=== PATIENT | male | born 1945 | race Caucasian/White ===

== ENCOUNTER → 2018-08-14 | Outpatient (CLI) | payer MEDICARE ==
[~2018-08-14] MED LIST: ATENOLOL50 MG PO; FISH OIL 1,0001 EAC2 PO; GEMFIBROZIL600 MG PO; HYDROCHLOROTHIA25 MG PO; HYDROCODON-ACE1 EA12 PO; IOPAMIDOL 370 MG/ML 200 ML INFUS..BTL INJ ONE; LISINOPRIL10 MG PO; METFORMIN HCL500 M1 PO; NIFEDIPINE; NOVOLOG100 UNIT/1 SC; OMEPRAZOLE40 MG PO; SIMVASTATIN20 MG PO; SODIUM CHLORIDE 0.9% 100 ML 100 ML ONE; SODIUM CHLORIDE 0.9% 250ML 250 ML ONE; SODIUM CHLORIDE 0.9% 500ML 500 ML ONE; TRESIBA SC; VERAPAMIL ER120 MG PO; [UNRECOGNIZED DRUG - OTHER] PO
[2018-08-14 15:35] LABS: CREATININE, SERUM 1.36 mg/dL (0.72-1.25)
--- NOTE | 2018-08-14 17:28 | Diagnostic Imaging Report ---
ADDENDUM #1 The following addendum is being made to comply with coding criteria, and does not substantially change the findings or recommendations of the original report All CT scans are performed using radiation dose reduction techniques. Technical factors are evaluated and adjusted to ensure appropriate moderation of exposure. Automated dose management technology is applied to adjust the radiation dose to minimize exposure while achieving a diagnostic-quality image. Signed by: Dr. Mariusz Fonseca M.D. on 08/21/2018 1:26 PM ORIGINAL REPORT EXAM: CT Chest WITH contrast 08/14/2018 3:03 PM INDICATION: Shortness of breath. Cough. Prior heart surgery. COMPARISON: None TECHNIQUE: Chest was scanned utilizing a multidetector helical scanner from the lung apex through the level of the adrenal glands without administration of IV contrast. Coronal and sagittal reformations were obtained. Pulmonary embolism protocol was performed. IV CONTRAST: 100 mL of Isovue-370 RADIATION DOSE: Total DLP: 726.66 mGy*cm Estimated effective dose: (DLP x 0.014 x size factor) mSv COMPLICATIONS: None FINDINGS: LINES/ TUBES: None. LUNGS AND AIRWAYS: Mild chronic appearing changes in the lungs with regions of scarring/atelectasis most pronounced in the lower lobes. No consolidated pneumonia. Airways are normal. PLEURA: The pleural spaces are clear. HEART AND MEDIASTINUM: No pulmonary embolism is seen. The thyroid gland is normal. No mediastinal, hilar or axillary lymphadenopathy. The heart is normal in size. There is scattered atherosclerotic calcification in the coronary arteries, aorta and branch vessels. Postsurgical changes are seen of the heart. There is no pericardial effusion. UPPER ABDOMEN: Unremarkable. BONES: The visualized bony thorax is within normal limits. SOFT TISSUES: Unremarkable. IMPRESSION: No pulmonary embolus is seen. Signed by: Dr. Mariusz Fonseca M.D. on 08/14/2018 5:25 PM
== END ==
LOC: CT 14:55
PROVIDERS: ATTEND Internal Medicine Medical Oncology
DX: I26.99 Other pulmonary embolism without acute cor pulmonale (principal); R06.02 Shortness of breath; R05 Cough
CPT/HCPCS: 36415; 71260; 82565; 84520; 96360; J7040; J7050; Q9967

== ENCOUNTER 2019-04-06 10:31 | Day surgery (SDC) | payer MEDICARE ==
[2019-04-04 12:25] LABS: BASOPHILS # (AUTO) 0.1 (0.0-0.1); BASOPHILS % 0.7 % (0.0-1.0); EOSINOPHILS # (AUTO) 0.6 (0.0-0.4); EOSINOPHILS % 6.4 % (0.0-6.0); HEMATOCRIT 39.7 % (38.2-49.6); HEMOGLOBIN 12.8 g/dL (14.0-18.0); MEAN CORPUSCULAR HEMOGLOBIN 28.9 pg (28-32); MEAN CORPUSCULAR HGB CONC 32.2 g/dL (31-35); MEAN CORPUSCULAR VOLUME 89.6 fL (81-99); MONOCYTES # (AUTO) 0.9 (0.2-0.8); NEUTROPHILS # (AUTO) 4.2 (2.1-6.9); NEUTROPHILS % 42.7 % (38.7-80.0); PLATELET COUNT 270 x10e3/uL (140-360); RED BLOOD COUNT 4.43 x10e6/uL (4.3-5.7); RED CELL DISTRIBUTION WIDTH 13.7 % (11.7-14.4)
[2019-04-04 12:39] LABS: INR 0.99; PROTHROMBIN TIME 13.6 seconds (11.9-14.5)
[2019-04-04 12:46] LABS: ALBUMIN 4.1 g/dL (3.5-5.0); ALBUMIN/GLOBULIN RATIO 1.2 (0.8-2.0); ANION GAP 16.5 mmol/L (8-16); CALCIUM 10.7 mg/dL (8.4-10.2); CREATININE, SERUM 1.21 mg/dL (0.72-1.25)
[2019-04-04 13:05] LABS: POTASSIUM 6.5 mmol/L (3.5-5.1)
--- NOTE | 2019-04-04 13:10 | NUR ---
1310 Received report critical lab 6.5K non hemolyzed as confirmed by lab. Notified Dr oGdinez office requested immediate call back regarding plan of action also text Dr Godinez. diane/rn
--- NOTE | 2019-04-04 13:15 | NUR ---
[address] Godinez staff Violet at office in process talking with and will have pt return to hospital for nicola per office staff ds/rn
[~2019-04-06] VITALS: Ht 180.3 cm; Wt 88.9 kg
[~2019-04-06 10:31] MED LIST changes: +ASPIR 8181 MG PO; +CARVEDILOL12.5 MG PO; +CRESTOR10 MG PO; -IOPAMIDOL 370 MG/ML 200 ML INFUS..BTL INJ ONE; +MULTIPLE VITAM1 EAC2 PO; +NIFEDIPINE ER30 M1 PO; -SODIUM CHLORIDE 0.9% 100 ML 100 ML ONE; -SODIUM CHLORIDE 0.9% 250ML 250 ML ONE; -SODIUM CHLORIDE 0.9% 500ML 500 ML ONE
--- OUTSIDE RECORDS SUMMARY | 2019-04-06 10:34 | XMS REPORT ---
[facility] Address Unknown Phone Unavailable Care Team Providers Care Technical Applications Scientist Name Role Phone WAN HODEG Unavailable Unavailable Payers Payer Name Policy Type Policy Number Effective Date Expiration Date Problems This patient has no known problems. Allergies, Adverse Reactions, Alerts Allergy Name Allergy Type Status Severity Reaction(s) Onset Date Inactive Date Treating Clinician Comments amoxicillin DA Active SV 2018-08-05 00:00:00 amoxicillin DA Active SV 2017-05-05 00:00:00 Medications This patient has no known medications. Results Test Description Test Time Test Comments Text Results Atomic Results Result Comments CT CHEST W 2018-08-14 17:20:00 [facility] [address] [place] [id number] Patient Name: SEBASTIÁN JULIO MR #: [id number] : 1945 Age/Sex: 73/M Req #: [id number] Adm Physician: Ordered by: WAN HODGE MD Report #: [id number] Location: [place] Room/Bed: Procedure: [id number] CT/CT CHEST W Exam Date: Exam Time: REPORT STATUS: Signed ADDENDUM #1 The following addendum is being made to comply with coding criteria, and does not substantially change the findings or recommendations of the original report All CT scans are performed using radiation dose reduction techniques. Technical factors are evaluated and adjusted to ensure appropriate moderation of exposure. Automated dose management technology is applied to adjust the radiation dose to minimize exposure while achieving a diagnostic-quality image. Signed by: Dr. Lazaro Fonseca M.D. on 08/21/2018 1:26 PM ORIGINAL REPORT EXAM: CT Chest WITH contrast 08/14/2018 3:03 PM INDICATION: Shortness of breath. Cough. Prior heart surgery. COMPARISON: None TECHNIQUE: Chest was scanned utilizing a multidetector helical scanner from the lung apex through the level of the adrenal glands without administration of IV contrast. Coronal and sagittal reformations were obtained. Pulmonary embolism protocol was performed. IV CONTRAST: 100 mL of Isovue-370 RADIATION DOSE: Total DLP: 726.66 mGy*cm Estimated effective dose: (DLP x 0.014 x size factor) mSv COMPLICATIONS: None FINDINGS: LINES/ TUBES: None. LUNGS AND AIRWAYS: Mild chronic appearing changes in the lungs with regions of scarring/atelectasis most pronounced in the lower lobes. No consolidated pneumonia. Airways are normal. PLEURA: The pleural spaces are clear. HEART AND MEDIASTINUM: No pulmonary embolism is seen. The thyroid gland is normal. No mediastinal, hilar or axillary lymphadenopathy. The heart is normal in size. There is scattered atherosclerotic calcification in the coronary arteries, aorta and branch vessels. Postsurgical changes are seen of the heart. There is no pericardial effusion. UPPER ABDOMEN: Unremarkable. BONES: The visualized bony thorax is within normal limits. SOFT TISSUES: Unremarkable. IMPRESSION: No pulmonary embolus is seen. Signed by: Dr. Lazaro Fonseca M.D. on 08/14/2018 5:25 PM Dictated By: LAZARO FONSECA MD, MD 1325 Transcribed By: GUILLERMO on 08/14/18 0691 COPY TO: WAN HODGE MD
--- OUTSIDE RECORDS SUMMARY | 2019-04-06 10:34 | XMS REPORT | Clinical Summary ---
Author Author [facility] Organization [facility] Address Unknown Phone Unavailable Care Team Providers Care Aerobics Instructor Name Role Phone Asked, No Pcp PCP Unavailable Allergies Comments Active Allergy Reactions Severity Noted Date Amoxicillin 11/15/2018 Medications End Date Status Medication Sig Dispensed Refills Start Date Active levocetirizine (XYZAL) 5 Take 5 mg by 0 MG tablet mouth every evening. Active NIFEdipine XL (PROCARDIA Take 90 mg by 0 XL) 90 MG 24 hr tablet mouth daily. Active rosuvastatin (CRESTOR) 20 Take 20 mg by 0 MG tablet mouth daily. Active omeprazole (PriLOSEC) 40 Take 40 mg by 0 MG capsule mouth daily. Active insulin ASPART (NovoLOG) Inject 8 0 100 unit/mL injection Units under the skin 3 (three) times a day before meals. Active insulin degludec (TRESIBA Inject 36 0 U-100 INSULIN SUBQ) Units under the skin. Active metFORMIN (GLUCOPHAGE) Take 1,000 mg 0 1,000 mg tablet by mouth 2 (two) times a day with meals. Active multivitamin with Take 1 tablet 0 minerals tablet by mouth daily. Active omega 6-yxe-mwv-fish oil Take by 0 (FISH OIL) 100-160-1,000 mouth. mg capsule Active glipiZIDE (GLUCOTROL) 5 Take 5 mg by 0 MG 24 hr tablet mouth daily. Active gemfibrozil (LOPID) 600 Take 600 mg 0 MG tablet by mouth 2 (two) times a day before meals. Active hydroCHLOROthiazide Take 25 mg by 0 (HYDRODIURIL) 25 MG mouth daily. tablet 11/22/2018 Discontinued atenolol (TENORMIN) 100 Take 100 mg 0 MG tablet by mouth daily. 11/22/2018 Discontinued clonIDINE (CATAPRES) 0.1 Take 0.1 mg 0 MG tablet by mouth as needed for high blood pressure. 12/22/2018 carvedilol (COREG) 12.5 Take 1 tablet 60 tablet 0 MG tablet (12.5 mg 9 total) by mouth 2 (two) times a day for 30 days. 12/03/2018 levoFLOXacin (LEVAQUIN) Take 1 tablet 10 tablet 0 500 MG tablet (500 mg 9 total) by mouth daily for 10 days. Active Problems Problem Noted Date Pneumonia of right lung due to infectious organism 11/15/2018 Encounters Care Team Description Date Type Specialty William Shepard MD Bavare, MD Sawyer Rosas, Scarlett Elizabeth MD Pneumonia of right lung due to infectious organism, unspecified part of lung (Primary Dx); Fever, unspecified fever cause; Acute congestive heart failure, unspecified heart failure type (HCC); Sepsis, due to unspecified organism (HCC); Pneumonia of right lower lobe due to infectious organism (HCC) 11/15/2018 [facility] - Encounter 11/22/2018 11/15/2018 Travel after 04/05/2018 Social History Date Tobacco Use Types Packs/Day Years Used Current Every Day Smoker Cigarettes 1 Smokeless Tobacco: Never Used Alcohol Use Drinks/Week oz/Week Comments No Alcohol Habits Answer Date Recorded How often do you have a drink containing alcohol? Never 11/15/2018 How many drinks containing alcohol do you have on Not asked a typical day when you are drinking? How often do you have six or more drinks on one Not asked occasion? Sex Assigned at Date Recorded Not on file Industry Job Start Date Occupation Not on file Not on file Not on file Travel End Travel History Travel Start No recent travel history available. Last Filed Vital Signs Time Taken Vital Sign Reading 11/22/2018 3:01 PM BUSINESS OPERATIONS MANAGER Blood Pressure 142/68 11/22/2018 3:01 PM BUSINESS OPERATIONS MANAGER Pulse 82 11/22/2018 3:01 PM BUSINESS OPERATIONS MANAGER Temperature 36.7 C (98.1 F) 11/22/2018 3:01 PM BUSINESS OPERATIONS MANAGER Respiratory Rate 18 11/22/2018 3:01 PM BUSINESS OPERATIONS MANAGER Oxygen Saturation 92% - Inhaled Oxygen - Concentration 11/15/2018 11:08 AM BUSINESS OPERATIONS MANAGER Weight 101 kg (223 lb) 11/15/2018 11:08 AM BUSINESS OPERATIONS MANAGER Height 180.3 cm (5' 11") 11/15/2018 11:08 AM BUSINESS OPERATIONS MANAGER Body Mass Index 31.1 Plan of Treatment Health Maintenance Due Date Last Done Comments COLONOSCOPY SCREENING 1997 SHINGLES VACCINES (#1) 1997 65+ PNEUMOCOCCAL VACCINE 2012 (1 of 2 - PCV13) INFLUENZA VACCINE 05/10/2019 Procedures Comments Procedure Name Priority Date/Time Associated Diagnosis POC GLUCOSE Routine 11/22/2018 11:02 AM BUSINESS OPERATIONS MANAGER XR CHEST 1 VW PORTABLE Routine 11/22/2018 8:18 AM BUSINESS OPERATIONS MANAGER POC GLUCOSE Routine 11/22/2018 6:04 AM BUSINESS OPERATIONS MANAGER MANUAL DIFFERENTIAL Routine 11/22/2018 5:15 AM BUSINESS OPERATIONS MANAGER ESTIMATED GFR Routine 11/22/2018 5:15 AM BUSINESS OPERATIONS MANAGER MAGNESIUM LEVEL Routine 11/22/2018 5:15 AM BUSINESS OPERATIONS MANAGER BASIC METABOLIC PANEL Routine 11/22/2018 5:15 AM BUSINESS OPERATIONS MANAGER CBC WITH PLATELET AND Routine 11/22/2018 DIFFERENTIAL 5:15 AM BUSINESS OPERATIONS MANAGER POC GLUCOSE Routine 11/21/2018 7:57 PM BUSINESS OPERATIONS MANAGER POC GLUCOSE Routine 11/21/2018 3:48 PM BUSINESS OPERATIONS MANAGER POC GLUCOSE Routine 11/21/2018 11:23 AM BUSINESS OPERATIONS MANAGER POC GLUCOSE Routine 11/21/2018 7:05 AM BUSINESS OPERATIONS MANAGER XR CHEST 1 VW PORTABLE Routine 11/21/2018 6:47 AM BUSINESS OPERATIONS MANAGER ESTIMATED GFR Routine 11/21/2018 3:30 AM BUSINESS OPERATIONS MANAGER MAGNESIUM LEVEL Routine 11/21/2018 3:30 AM BUSINESS OPERATIONS MANAGER BASIC METABOLIC PANEL Routine 11/21/2018 3:30 AM BUSINESS OPERATIONS MANAGER HC COMPLETE BLD COUNT Routine 11/21/2018 W/AUTO DIFF 3:30 AM BUSINESS OPERATIONS MANAGER ESTIMATED GFR Routine 11/20/2018 8:22 PM BUSINESS OPERATIONS MANAGER MAGNESIUM LEVEL Routine 11/20/2018 8:22 PM BUSINESS OPERATIONS MANAGER BASIC METABOLIC PANEL Routine 11/20/2018 8:22 PM BUSINESS OPERATIONS MANAGER POC GLUCOSE Routine 11/20/2018 4:13 PM BUSINESS OPERATIONS MANAGER POC GLUCOSE Routine 11/20/2018 11:33 AM BUSINESS OPERATIONS MANAGER POC GLUCOSE Routine 11/20/2018 7:27 AM BUSINESS OPERATIONS MANAGER XR CHEST 1 VW PORTABLE Routine 11/20/2018 6:42 AM BUSINESS OPERATIONS MANAGER ESTIMATED GFR Routine 11/20/2018 4:14 AM BUSINESS OPERATIONS MANAGER MAGNESIUM LEVEL Routine 11/20/2018 4:14 AM BUSINESS OPERATIONS MANAGER HC COMPLETE BLD COUNT Routine 11/20/2018 W/AUTO DIFF 4:14 AM BUSINESS OPERATIONS MANAGER BASIC METABOLIC PANEL Routine 11/20/2018 4:14 AM BUSINESS OPERATIONS MANAGER POC GLUCOSE Routine 11/19/2018 9:09 PM BUSINESS OPERATIONS MANAGER POC GLUCOSE Routine 11/19/2018 4:00 PM BUSINESS OPERATIONS MANAGER POC GLUCOSE Routine 11/19/2018 11:11 AM BUSINESS OPERATIONS MANAGER XR CHEST 1 VW PORTABLE Routine 11/19/2018 7:30 AM BUSINESS OPERATIONS MANAGER POC GLUCOSE Routine 11/19/2018 7:00 AM BUSINESS OPERATIONS MANAGER ESTIMATED GFR Timed 11/19/2018 4:53 AM BUSINESS OPERATIONS MANAGER PHOSPHORUS LEVEL Timed 11/19/2018 4:53 AM BUSINESS OPERATIONS MANAGER MAGNESIUM LEVEL Timed 11/19/2018 4:53 AM BUSINESS OPERATIONS MANAGER CBC WITH PLATELET AND Timed 11/19/2018 DIFFERENTIAL 4:53 AM BUSINESS OPERATIONS MANAGER BASIC METABOLIC PANEL Timed 11/19/2018 4:53 AM BUSINESS OPERATIONS MANAGER IONIZED CALCIUM Routine 11/19/2018 4:53 AM BUSINESS OPERATIONS MANAGER ARTERIAL BLOOD GAS STAT 11/18/2018 11:13 PM BUSINESS OPERATIONS MANAGER XR CHEST 1 VW PORTABLE STAT 11/18/2018 11:07 PM BUSINESS OPERATIONS MANAGER GRAM STAIN Routine 11/18/2018 8:05 PM BUSINESS OPERATIONS MANAGER URINE CULTURE Routine 11/18/2018 8:05 PM BUSINESS OPERATIONS MANAGER ESTIMATED GFR Routine 11/18/2018 7:19 PM BUSINESS OPERATIONS MANAGER URINE PROTEIN/CREATININE Routine 11/18/2018 RATIO, RANDOM 7:19 PM BUSINESS OPERATIONS MANAGER URINALYSIS SCREEN AND Routine 11/18/2018 MICROSCOPY, WITH REFLEX 7:19 PM BUSINESS OPERATIONS MANAGER TO CULTURE LEGIONELLA URINARY Routine 11/18/2018 ANTIGEN 4:13 PM BUSINESS OPERATIONS MANAGER POC GLUCOSE Routine 11/18/2018 4:01 PM BUSINESS OPERATIONS MANAGER POC GLUCOSE Routine 11/18/2018 11:06 AM BUSINESS OPERATIONS MANAGER XR CHEST 1 VW PORTABLE Routine 11/18/2018 7:35 AM BUSINESS OPERATIONS MANAGER POC GLUCOSE Routine 11/18/2018 7:06 AM BUSINESS OPERATIONS MANAGER IONIZED CALCIUM Routine 11/18/2018 4:58 AM BUSINESS OPERATIONS MANAGER ESTIMATED GFR Timed 11/18/2018 4:51 AM BUSINESS OPERATIONS MANAGER PHOSPHORUS LEVEL Timed 11/18/2018 4:51 AM BUSINESS OPERATIONS MANAGER MAGNESIUM LEVEL Timed 11/18/2018 4:51 AM BUSINESS OPERATIONS MANAGER CBC WITH PLATELET AND Timed 11/18/2018 DIFFERENTIAL 4:51 AM BUSINESS OPERATIONS MANAGER BASIC METABOLIC PANEL Timed 11/18/2018 4:51 AM BUSINESS OPERATIONS MANAGER POC GLUCOSE Routine 11/18/2018 4:48 AM BUSINESS OPERATIONS MANAGER POC GLUCOSE Routine 11/18/2018 12:34 AM BUSINESS OPERATIONS MANAGER POC GLUCOSE Routine 11/17/2018 8:27 PM BUSINESS OPERATIONS MANAGER US DUPLEX VENOUS LOWER Routine 11/17/2018 EXTREMITY BILATERAL 7:41 PM BUSINESS OPERATIONS MANAGER POC GLUCOSE Routine 11/17/2018 4:30 PM BUSINESS OPERATIONS MANAGER POC GLUCOSE Routine 11/17/2018 1:09 PM BUSINESS OPERATIONS MANAGER US RENAL Routine 11/17/2018 10:50 AM BUSINESS OPERATIONS MANAGER POC GLUCOSE Routine 11/17/2018 10:35 AM BUSINESS OPERATIONS MANAGER MANUAL DIFFERENTIAL Routine 11/17/2018 10:35 AM BUSINESS OPERATIONS MANAGER CBC WITH PLATELET AND Routine 11/17/2018 DIFFERENTIAL 10:35 AM BUSINESS OPERATIONS MANAGER VENOUS BLOOD GAS Routine 11/17/2018 10:30 AM BUSINESS OPERATIONS MANAGER POC GLUCOSE Routine 11/17/2018 8:37 AM BUSINESS OPERATIONS MANAGER XR CHEST 1 VW PORTABLE Routine 11/17/2018 7:08 AM BUSINESS OPERATIONS MANAGER POC GLUCOSE Routine 11/17/2018 5:07 AM BUSINESS OPERATIONS MANAGER ESTIMATED GFR Routine 11/17/2018 4:26 AM BUSINESS OPERATIONS MANAGER TOTAL IRON BINDING Routine 11/17/2018 CAPACITY 4:26 AM BUSINESS OPERATIONS MANAGER FERRITIN LEVEL Routine 11/17/2018 4:26 AM BUSINESS OPERATIONS MANAGER B NATRIURETIC PEPTIDE Routine 11/17/2018 4:26 AM BUSINESS OPERATIONS MANAGER COMPREHENSIVE METABOLIC Routine 11/17/2018 PANEL 4:26 AM BUSINESS OPERATIONS MANAGER PHOSPHORUS LEVEL Routine 11/17/2018 4:26 AM BUSINESS OPERATIONS MANAGER MAGNESIUM LEVEL Routine 11/17/2018 4:26 AM BUSINESS OPERATIONS MANAGER VITAMIN D 25 HYDROXY Routine 11/17/2018 LEVEL 4:26 AM BUSINESS OPERATIONS MANAGER URIC ACID LEVEL Routine 11/17/2018 4:26 AM BUSINESS OPERATIONS MANAGER PARATHYROID HORMONE Routine 11/17/2018 4:26 AM BUSINESS OPERATIONS MANAGER IONIZED CALCIUM Routine 11/17/2018 4:26 AM BUSINESS OPERATIONS MANAGER POC GLUCOSE Routine 11/17/2018 1:31 AM BUSINESS OPERATIONS MANAGER POC GLUCOSE Routine 11/16/2018 11:23 PM BUSINESS OPERATIONS MANAGER POC GLUCOSE Routine 11/16/2018 7:30 PM BUSINESS OPERATIONS MANAGER URINALYSIS SCREEN AND Routine 11/16/2018 MICROSCOPY, WITH REFLEX 6:48 PM BUSINESS OPERATIONS MANAGER TO CULTURE URINE CULTURE Routine 11/16/2018 6:48 PM BUSINESS OPERATIONS MANAGER STREPTOCOCCUS PNEUMONIAE Routine 11/16/2018 URINARY ANTIGEN 6:48 PM BUSINESS OPERATIONS MANAGER LEGIONELLA URINARY Routine 11/16/2018 ANTIGEN 6:48 PM BUSINESS OPERATIONS MANAGER POC GLUCOSE Routine 11/16/2018 6:36 PM BUSINESS OPERATIONS MANAGER POC GLUCOSE Routine 11/16/2018 6:07 PM BUSINESS OPERATIONS MANAGER VENOUS BLOOD GAS STAT 11/16/2018 4:44 PM BUSINESS OPERATIONS MANAGER GRAM STAIN Routine 11/16/2018 4:44 PM BUSINESS OPERATIONS MANAGER SPUTUM CULTURE Routine 11/16/2018 4:44 PM BUSINESS OPERATIONS MANAGER ECHOCARDIOGRAM 2D Routine 11/16/2018 COMPLETE W MMODE SPECTRAL 4:43 PM BUSINESS OPERATIONS MANAGER COLOR DOPPLER ([id number]) MANUAL DIFFERENTIAL STAT 11/16/2018 2:43 PM BUSINESS OPERATIONS MANAGER VANCOMYCIN LEVEL, RANDOM STAT 11/16/2018 2:43 PM BUSINESS OPERATIONS MANAGER MAGNESIUM LEVEL STAT 11/16/2018 2:43 PM BUSINESS OPERATIONS MANAGER PHOSPHORUS LEVEL STAT 11/16/2018 2:43 PM BUSINESS OPERATIONS MANAGER COMPREHENSIVE METABOLIC STAT 11/16/2018 PANEL 2:43 PM BUSINESS OPERATIONS MANAGER ESTIMATED GFR STAT 11/16/2018 2:43 PM BUSINESS OPERATIONS MANAGER LACTIC ACID LEVEL STAT 11/16/2018 2:43 PM BUSINESS OPERATIONS MANAGER IONIZED CALCIUM STAT 11/16/2018 2:43 PM BUSINESS OPERATIONS MANAGER CBC WITH PLATELET AND STAT 11/16/2018 DIFFERENTIAL 2:43 PM BUSINESS OPERATIONS MANAGER MYCOPLASMA PNEUMONIAE AB, Routine 11/16/2018 IGM 1:43 PM BUSINESS OPERATIONS MANAGER POTASSIUM LEVEL Routine 11/16/2018 12:17 PM BUSINESS OPERATIONS MANAGER POC GLUCOSE Routine 11/16/2018 12:03 PM BUSINESS OPERATIONS MANAGER POC GLUCOSE Routine 11/16/2018 6:11 AM BUSINESS OPERATIONS MANAGER LACTIC ACID LEVEL Routine 11/16/2018 5:08 AM BUSINESS OPERATIONS MANAGER ESTIMATED GFR Routine 11/16/2018 5:08 AM BUSINESS OPERATIONS MANAGER B NATRIURETIC PEPTIDE Routine 11/16/2018 5:08 AM BUSINESS OPERATIONS MANAGER BASIC METABOLIC PANEL Routine 11/16/2018 5:08 AM BUSINESS OPERATIONS MANAGER B NATRIURETIC PEPTIDE Routine 11/15/2018 10:32 PM BUSINESS OPERATIONS MANAGER LACTIC ACID LEVEL Routine 11/15/2018 10:32 PM BUSINESS OPERATIONS MANAGER POC GLUCOSE Routine 11/15/2018 9:12 PM BUSINESS OPERATIONS MANAGER US RENAL Routine 11/15/2018 8:58 PM BUSINESS OPERATIONS MANAGER TROPONIN Timed 11/15/2018 7:11 PM BUSINESS OPERATIONS MANAGER LACTIC ACID LEVEL, SEPSIS Timed 11/15/2018 - NOW AND REPEAT 2X EVERY 7:11 PM BUSINESS OPERATIONS MANAGER 3 HOURS POC GLUCOSE Routine 11/15/2018 4:49 PM BUSINESS OPERATIONS MANAGER TROPONIN Timed 11/15/2018 3:12 PM BUSINESS OPERATIONS MANAGER LACTIC ACID LEVEL, SEPSIS Timed 11/15/2018 - NOW AND REPEAT 2X EVERY 3:12 PM BUSINESS OPERATIONS MANAGER 3 HOURS XR CHEST 1 VW PORTABLE STAT 11/15/2018 11:29 AM BUSINESS OPERATIONS MANAGER ECG 12-LEAD STAT 11/15/2018 10:48 AM BUSINESS OPERATIONS MANAGER MANUAL DIFFERENTIAL STAT 11/15/2018 10:44 AM BUSINESS OPERATIONS MANAGER ESTIMATED GFR STAT 11/15/2018 10:44 AM BUSINESS OPERATIONS MANAGER B NATRIURETIC PEPTIDE STAT 11/15/2018 10:44 AM BUSINESS OPERATIONS MANAGER TROPONIN STAT 11/15/2018 10:44 AM BUSINESS OPERATIONS MANAGER LIPASE LEVEL STAT 11/15/2018 10:44 AM BUSINESS OPERATIONS MANAGER LACTIC ACID LEVEL, SEPSIS STAT 11/15/2018 - NOW AND REPEAT 2X EVERY 10:44 AM BUSINESS OPERATIONS MANAGER 3 HOURS HEPATIC FUNCTION PANEL STAT 11/15/2018 10:44 AM BUSINESS OPERATIONS MANAGER BASIC METABOLIC PANEL STAT 11/15/2018 10:44 AM BUSINESS OPERATIONS MANAGER CBC WITH PLATELET AND STAT 11/15/2018 DIFFERENTIAL 10:44 AM BUSINESS OPERATIONS MANAGER BLOOD CULTURE, AEROBIC & Routine 11/15/2018 ANAEROBIC 10:44 AM BUSINESS OPERATIONS MANAGER BLOOD CULTURE, AEROBIC & Routine 11/15/2018 ANAEROBIC 10:40 AM BUSINESS OPERATIONS MANAGER ECG ED PRELIMINARY Routine 11/15/2018 INTERPRETATION 10:29 AM BUSINESS OPERATIONS MANAGER [place] CRITICAL CARE, E/M Routine 11/15/2018 30-74 MINUTES 10:29 AM BUSINESS OPERATIONS MANAGER RESPIRATORY PATHOGEN STAT 11/15/2018 PANEL 9:59 AM BUSINESS OPERATIONS MANAGER INFLUENZA ANTIGEN Routine 11/15/2018 9:59 AM BUSINESS OPERATIONS MANAGER after 04/05/2018 Results * POC glucose (11/22/2018 11:02 AM BUSINESS OPERATIONS MANAGER) Only the most recent of 33 results within the time period is included. POC glucose 155 (H) 65 - 100 mg/dL [place] Comment: ERUM ROMAN Meter ID: [id number] [facility] Revenue Cycle Analyst: Anupama [facility] Specimen Performing Organization Address City/State/Zipcode Phone Number [facility] DEPARTMENT OF [address] [address] PATHOLOGY AND GENOMIC MEDICINE [place] ERUM ROMAN [address] [place] [address] [facility] * XR Chest 1 Vw Portable (11/22/2018 8:18 AM BUSINESS OPERATIONS MANAGER) Only the most recent of 8 results within the time period is included. Specimen Narrative Performed At EXAMINATION:XR CHEST 1 VW PORTABLE [facility] CLINICAL HISTORY:Respiratory Failure or Arrest COMPARISON:Chest x-ray from 11/21/2018 IMPRESSION: 1.Median sternotomy wires are intact. 2.Stable cardiac silhouette. Calcified atherosclerosis of the aortic arch is noted. 3.The right midlung consolidation has continued to improve and is now nearly resolved. There is no pneumothorax. Johann Mariee MD Supervisor [employer] Handling, PGY - 2 I personally reviewed the images and the resident's findings and agree with the final report. [facility]-[id number] Procedure Note Hm Interface, Radiology Results Incoming - 11/22/2018 10:22 AM BUSINESS OPERATIONS MANAGER EXAMINATION: XR CHEST 1 VW PORTABLE CLINICAL HISTORY: Respiratory Failure or Arrest COMPARISON: Chest x-ray from 11/21/2018 IMPRESSION: 1. Median sternotomy wires are intact. 2. Stable cardiac silhouette. Calcified atherosclerosis of the aortic arch is noted. 3. The right midlung consolidation has continued to improve and is now nearly resolved. There is no pneumothorax. Johann Mariee MD Supervisor Coke Handling, PGY - 2 I personally reviewed the images and the resident's findings and agree with the final report. [facility]-[id number] Performing Organization Address City/State/Zipcode Phone Number [facility] [address] [place] [address] * Estimated GFR (11/22/2018 5:15 AM BUSINESS OPERATIONS MANAGER) Only the most recent of 11 results within the time period is included. Estimated GFR 55 (A) mL/min/1.73 m2 [place] Comment: ERUM ROMAN [facility] G1 >=90 Normal or high G2 60-89Mildly decreased [id number] Mildly to moderately decreased [id number] Moderately to severely decreased G4 15-29Severely decreased G5 <15Kidney failure The eGFR was calculated using the Chronic Kidney Disease Epidemiology Collaboration (CKD-EPI) equation. Interpretation is based on recommendations of the National Kidney Foundation-Kidney Disease Outcomes Quality Initiative (NKF-KDOQI) published in 2014. Specimen Plasma specimen Performing Organization Address City/[facility]/Zipcode Phone Number [facility] [address] [place] [address] PATHOLOGY AND [facility] MEDICINE [address] * Manual differential (11/22/2018 5:15 AM BUSINESS OPERATIONS MANAGER) Only the most recent of 4 results within the time period is included. Manual PERFORMED [place] differential [facility] Neutrophils 59.0 36.0 - 66.0 % [facility] Lymphocytes 27.0 24.0 - 44.0 % [facility] Monocytes 6.0 0.0 - 6.0 % [facility] Eosinophils 2.0 0.0 - 6.0 % [facility] Basophils 0.0 0.0 - 1.2 % [facility] Metamyelocytes 0 0 - 1 % [facility] Myelocytes 2 (H) 0 - 1 % [facility] Promyelocytes 0 0 - 1 % [facility] Reactive 4.0 [place] lymphocytes [facility] Platelet slide Hunter adequate [place] review [facility] Anisocytosis slight [facility] Tear drop cells Occasional [facility] Ovalocytes Occasional [facility] Specimen Performing Organization Address City/State/Zipcode Phone Number [facility] [address] [place] [address] PATHOLOGY AND [facility] MEDICINE [address] * CBC with platelet and differential (11/22/2018 5:15 AM BUSINESS OPERATIONS MANAGER) Only the most recent of 8 results within the time period is included. WBC 11.0 4.2 - 11.0 k/uL [facility] RBC 4.13 4.04 - 5.86 m/uL [facility] HGB 11.4 (L) 13.0 - 17.3 g/dL [facility] HCT 35.4 34.0 - 45.0 % [facility] MCV 85.7 80.0 - 98.0 fL [facility] MCH 27.6 27.0 - 34.0 pg [facility] MCHC 32.2 31.5 - 36.5 g/dL [facility] RDW - SD 49.4 37.0 - 51.0 fL [facility] MPV 11.4 (H) 7.4 - 10.4 fL [facility] Platelet count 162 150 - 400 k/uL [facility] Nucleated RBC 0.00 /100 WBC [facility] Neutrophils 59.0 36.0 - 66.0 % [facility] Lymphocytes 27.0 24.0 - 44.0 % [facility] Monocytes 6.0 0.0 - 6.0 % [facility] Eosinophils 2.0 0.0 - 6.0 % [facility] Basophils 0.0 0.0 - 1.2 % [facility] Specimen Blood Performing Organization Address City/[facility]/Zipcode Phone Number [place] [phone] [place] [address] PATHOLOGY AND GENOMIC MEDICINE [address] * Magnesium level (11/22/2018 5:15 AM BUSINESS OPERATIONS MANAGER) Only the most recent of 8 results within the time period is included. Magnesium 1.60 1.60 - 2.40 mg/dL [facility] Specimen Plasma specimen Performing Organization Address City/[facility] [place] [address] PATHOLOGY AND GENOMIC MEDICINE [address] * Basic metabolic panel (11/22/2018 5:15 AM BUSINESS OPERATIONS MANAGER) Only the most recent of 8 results within the time period is included. Sodium 136 135 - 150 mEq/L [facility] Potassium 3.7 3.5 - 5.0 mEq/L [facility] Chloride 93 (L) 98 - 112 mEq/L [facility] CO2 29 24 - 31 mmol/L [facility] Anion gap 14@ANIO 7 - 15 mEq/L [facility] BUN 46 (H) 7 - 18 mg/dL [facility] Creatinine 1.30 (H) 0.70 - 1.20 mg/dL [facility] Glucose 103 (H) 65 - 100 mg/dL [facility] Calcium 9.9 8.8 - 10.2 mg/dL [facility] Specimen Plasma specimen Performing Organization Address City/[facility] [place] [address] PATHOLOGY AND GENOMIC MEDICINE [address] * Phosphorus level (11/19/2018 4:53 AM BUSINESS OPERATIONS MANAGER) Only the most recent of 4 results within the time period is included. Pathologist [facility] Phosphorus 3.1 2.4 - 4.5 mg/dL [facility] Specimen Plasma specimen Performing Organization Address City/[facility] [place] [address] PATHOLOGY AND GENOMIC MEDICINE [address] * Ionized calcium (11/19/2018 4:53 AM BUSINESS OPERATIONS MANAGER) Only the most recent of 4 results within the time period is included. pH 7.41 [facility] Ionized calcium 1.10 (L) 1.11 - 1.32 mmol/L [facility] Specimen Plasma specimen Performing Organization Address City/[facility] [place] [address] PATHOLOGY AND GENOMIC MEDICINE [facility] [address] * Arterial blood gas (11/18/2018 11:13 PM BUSINESS OPERATIONS MANAGER) Revenue Cycle Analyst RIP TORRES,RT [facility] Collection site RRA [facility] O2 therapy VOPOTHERM [facility] Respiratory 15 bpm [place] rate [facility] pH, arterial 7.426 7.350 - 7.450 units [facility] pCO2, arterial 40.2 35.0 - 45.0 mmHg [facility] pO2, arterial 62.3 (L) 80.0 - 90.0 mmHg [facility] O2 saturation, 92.3 (L) 95.0 - 100.0 % [place] arterial [facility] Base excess, 2.0 mEq/L [place] arterial [facility] Bicarbonate 26.4 21.0 - 28.0 mEq/L [facility] O2 content 12.7 VOL% [facility] FiO2, inspired 40.0 % [place] O2% [facility] Carboxyhemoglob 0.6 0.0 - 1.4 % [place] in Comment: [facility] Reference Ranges: [facility] Carboxyhemoglobin [facility] Non smoker: 0.0 - 2.0% Smoker: 2.1 - 5.0% Heavy smoker: 5.1 - 9% Methemoglobin 0.0 0.0 - 1.0 % [facility] Hemoglobin, 9.8 (L) 14.0 - 18.0 g/dL [place] blood gas [facility] pO2, A-a 183.0 mmHg [facility] Specimen Blood Performing Organization Address City/State/Zipcode Phone Number [facility] [address] [place] [address] PATHOLOGY AND [facility] MEDICINE [place] [id number] * Gram stain (11/18/2018 8:05 PM BUSINESS OPERATIONS MANAGER) Only the most recent of 2 results within the time period is included. Gram stain No WBC's or organisms seen. [place] result Comment: DENOMINATIONAL Specimen [facility] Specimen Source: Urine Specimen Site: Clean catch Specimen Urine Performing Organization Address City/[facility]/Zipcode Phone Number [facility] DEPARTMENT [address] [address] PATHOLOGY AND GENOMIC MEDICINE [address] * Urine culture (11/18/2018 8:05 PM BUSINESS OPERATIONS MANAGER) Only the most recent of 2 results within the time period is included. Pathologist [facility] Urine culture No growth after 24 hours [place] isolate Comment: DENOMINATIONAL Specimen [facility] Specimen Source: Urine Specimen Site: Clean catch Specimen Urine Performing Organization Address City/[facility] Phone Number [facility] DEPARTMENT OF [address] [place] [address] PATHOLOGY AND GENOMIC MEDICINE [address] * Urinalysis screen and microscopy, with reflex to culture (11/18/2018 7:19 PM BUSINESS OPERATIONS MANAGER) Only the most recent of 2 results within the time period is included. Specimen site Clean catch [facility] Color, UA Yellow [facility] Appearance, UA Cloudy [facility] Specific 1.012 1.001 - 1.035 [place] gravity, [facility] pH, UA 5.0 5.0 - 8.5 [facility] Protein, UA Negative Negative [facility] Glucose, UA Negative Negative [facility] Ketones, UA Negative Negative [facility] Bilirubin, UA Negative Negative [facility] Blood, UA Large (A) Negative [facility] Nitrite, UA Negative Negative [facility] Urobilinogen, Negative <2.0 [facility] Leukocyte Negative Negative [place] esterase, UA [facility] Epithelial Few /HPF [place] cells, [facility] WBC, UA 3 (H) 0 - 1 /HPF [facility] RBC, UA 145 (H) 0 - 5 /HPF [facility] Bacteria, UA Trace None seen [facility] Yeast, UA None seen [facility] Yeast with None seen [place] pseudohyphae, [facility] Specimen Urine Performing Organization Address City/[facility]/Zipcode Phone Number [facility] OF [address] [facility] [place] [address] PATHOLOGY AND GENOMIC MEDICINE [address] * Urine protein/creatinine ratio, random (11/18/2018 7:19 PM BUSINESS OPERATIONS MANAGER) Protein, urine 12 mg/dL [place] random [facility] Protein 6.4 6.3 - 8.3 g/dL [facility] Protein 1.88 [place] clearance, [facility] Creatinine, 60 mg/dL [place] urine, random [facility] Creatinine 1.80 (H) 0.70 - 1.20 mg/dL [facility] Urine 33.33 [place] creatinine [facility] Prot/creat 5.64 [place] ratio, urine [facility] Specimen Urine Performing Organization Address City/[facility]/Zipcode Phone Number [facility] OF [address] [place] [address] PATHOLOGY AND GENOMIC MEDICINE [address] * Legionella urinary antigen (11/18/2018 4:13 PM BUSINESS OPERATIONS MANAGER) Only the most recent of 2 results within the time period is included. Legionella Negative for Legionella [place] urinary antigen serogroup 1 antigen. DENOMINATIONAL Comment: HOSPITAL Specimen Information Specimen Source: Urine Specimen Site: Clean catch Specimen Urine Performing Organization Address City/State/Zipcode Phone Number [facility] DEPARTMENT OF [address] [place] [address] PATHOLOGY AND GENOMIC MEDICINE [address] [address] [facility] * Us duplex venous lower extremity (11/17/2018 7:41 PM BUSINESS OPERATIONS MANAGER) Specimen Narrative Performed At EXAMINATION:US DUPLEX VENOUS LOWER EXTREMITY BILATERAL [facility] CLINICAL HISTORY:dvt COMPARISON:There are no prior comparable exams at this institution. TECHNIQUE:Grayscale, color Doppler, and spectral waveform analysis of the bilateral lower extremity deep venous systems was performed. The bilateral common femoral, superficial femoral, proximal deep femoral, greater saphenous, and popliteal veins were evaluated. The calf vessels were also evaluated. FINDINGS: The bilateral common femoral, superficial femoral, and popliteal veins are compressible. They demonstrate normal venous waveforms and response to augmentation. There is flow in the visualized calf veins. Left greater saphenous vein of the calf is not visualized. There is no evidence of a popliteal or Crawford's cyst. IMPRESSION:No evidence of DVT or superficial thrombophlebitis involving the right or left lower extremity. [facility]-[id number] Procedure Note Interface, Radiology Results Incoming - 11/17/2018 7:53 PM BUSINESS OPERATIONS MANAGER EXAMINATION: US DUPLEX VENOUS LOWER EXTREMITY BILATERAL CLINICAL HISTORY: dvt COMPARISON: There are no prior comparable exams at this institution. TECHNIQUE: Grayscale, color Doppler, and spectral waveform analysis of the bilateral lower extremity deep venous systems was performed. The bilateral common femoral, superficial femoral, proximal deep femoral, greater saphenous, and popliteal veins were evaluated. The calf vessels were also evaluated. FINDINGS: The bilateral common femoral, superficial femoral, and popliteal veins are compressible. They demonstrate normal venous waveforms and response to augmentation. There is flow in the visualized calf veins. Left greater saphenous vein of the calf is not visualized. There is no evidence of a popliteal or Crawford's cyst. IMPRESSION: No evidence of DVT or superficial thrombophlebitis involving the right or left lower extremity. [facility]-[id number] Performing Organization Address City/State/Zipcode Phone Number [facility] [address] [place] [address] * US Renal (11/17/2018 10:50 AM BUSINESS OPERATIONS MANAGER) Only the most recent of 2 results within the time period is included. Specimen Narrative Performed At EXAM: [facility] Renal ultrasound. INDICATION: Renal failure. COMPARISON: Renal ultrasound dated 11/15/2018. TECHNIQUE: Multiple grayscale and color Doppler images of the kidneys and bladder were obtained. FINDINGS: Interval placement Poole catheter. Bladder is decompressed, which limits full evaluation of the bladder wall.. Right kidney is normal in contour, cortical thickness, and cortical echogenicity. It is normal in size, measuring 11.7 x 6.9 x 5.2 cm. Normal parenchymal flow throughout. No calculus, mass, or hydronephrosis. Left kidney is also normal in contour, cortical thickness, and cortical echogenicity. It is also normal in size, measuring 13.1 x 5.1 x 6.5 cm. Normal parenchymal flow throughout. No calculus, mass, or hydronephrosis. Gallbladder is markedly distended since prior exam. This may be due to limited oral intake. If clinical concern for cholelithiasis/cholecystitis exists, consider gallbladder ultrasound. IMPRESSION: 1. Interval placement Poole catheter. Bladder is decompressed which limits full evaluation of bladder wall. 2. Marked distention of the gallbladder significantly increasing since prior exam, which may be secondary to Limited oral intake. Nevertheless, clinical concern for cholelithiasis/cholecystitis exists, consider gallbladder ultrasound. 3. Normal kidneys bilaterally. Procedure Note Interface, Radiology Results Incoming - 11/17/2018 11:21 AM BUSINESS OPERATIONS MANAGER EXAM: Renal ultrasound. INDICATION: Renal failure. COMPARISON: Renal ultrasound dated 11/15/2018. TECHNIQUE: Multiple grayscale and color Doppler images of the kidneys and bladder were obtained. FINDINGS: Interval placement Poole catheter. Bladder is decompressed, which limits full evaluation of the bladder wall.. Right kidney is normal in contour, cortical thickness, and cortical echogenicity. It is normal in size, measuring 11.7 x 6.9 x 5.2 cm. Normal parenchymal flow throughout. No calculus, mass, or hydronephrosis. Left kidney is also normal in contour, cortical thickness, and cortical echogenicity. It is also normal in size, measuring 13.1 x 5.1 x 6.5 cm. Normal parenchymal flow throughout. No calculus, mass, or hydronephrosis. Gallbladder is markedly distended since prior exam. This may be due to limited oral intake. If clinical concern for cholelithiasis/cholecystitis exists, consider gallbladder ultrasound. IMPRESSION: 1. Interval placement Poole catheter. Bladder is decompressed which limits full evaluation of bladder wall. 2. Marked distention of the gallbladder significantly increasing since prior exam, which may be secondary to Limited oral intake. Nevertheless, clinical concern for cholelithiasis/cholecystitis exists, consider gallbladder ultrasound. 3. Normal kidneys bilaterally. Performing Organization Address City/State/Zipcode Phone Number [facility] [address] [place] [address] * Venous blood gas (11/17/2018 10:30 AM BUSINESS OPERATIONS MANAGER) Only the most recent of 2 results within the time period is included. Revenue Cycle Analyst [place] [facility] Collection site R. Hand [facility] O2 therapy [place] [facility] Respiratory 14 bpm [place] rate [facility] pH, venous 7.314 (L) 7.320 - 7.420 units [facility] pCO2, venous 40.2 (L) 45.0 - 51.0 mmHg [facility] pO2, venous 36.8 25.0 - 40.0 mmHg [facility] O2 saturation, 64.9 40.0 - 70.0 % [place] venous [facility] Base excess, -5.8 (L) -2.0 - 2.0 mEq/L [place] venous [facility] Bicarbonate 20.4 (L) 21.0 - 28.0 mEq/L [facility] O2 content 9.2 VOL% [facility] FiO2, inspired 40.0 % [place] O2% [facility] Carboxyhemoglob 0.7 0.0 - 1.4 % [place] in Comment: [facility] Reference Ranges: [facility] Carboxyhemoglobin [facility] Non smoker: 0.0 - 2.0% Smoker: 2.1 - 5.0% Heavy smoker: 5.1 - 9% Methemoglobin 1.5 (H) 0.0 - 1.0 % [facility] Hemoglobin, 10.3 (L) 14.0 - 18.0 g/dL [place] blood gas [facility] Specimen Blood Performing Organization Address City/[facility] Phone Number [facility] OF [address] [place] [phone] PATHOLOGY AND GENOMIC MEDICINE [facility] [address] * Total iron binding capacity (11/17/2018 4:26 AM BUSINESS OPERATIONS MANAGER) Iron level 12 (L) 59 - 158 ug/dL [facility] Iron binding 192 (L) 271 - 474 ug/dL [place] capacity [facility] % Saturation 6.3 (L) 20.0 - 40.0 % [facility] Specimen Blood Performing Organization Address City/State/Zipcode Phone Number [facility] OF [address] [place] [phone] PATHOLOGY AND GENOMIC MEDICINE [facility] [address] * Vitamin D 25 hydroxy level (11/17/2018 4:26 AM BUSINESS OPERATIONS MANAGER) Vitamin D, 22.2 (L) 30.0 - 150.0 ng/mL [place] 25-hydroxy Comment: DENOMINATIONAL This assay reports the sum of HOSPITAL 25-hydroxy vitamin D3 and 25-hydroxy vitamin D2. Reference range: 0-17 years: Deficiency: less than 20ng/mL Optimum level: greater than or equal to 20 ng/mL. 18 years and older: Deficiency: less than 20ng/mL Insufficiency: 20-29 ng/mL Optimum Level: 30-80 ng/mL The assay reportable range is 3.4155.9 ng/mL. Levels higher than 150 ng/mL may be associated with toxicity. If toxicity is clinically suspected and the reported result is >155.9 ng/mL,contact lab for alternative methods to obtain a definitivelevel. If separate quantitation of 25-hydroxy vitamin D3 and 25-hydroxy vitamin D2 is needed, please contact lab for alternative methods. Specimen Blood Performing Organization Address City/[facility]/Zipcode Phone Number [facility] DEPARTMENT [address] [place] [address] PATHOLOGY AND [facility] MEDICINE [address] * Uric acid level (11/17/2018 4:26 AM BUSINESS OPERATIONS MANAGER) Uric acid 9.4 (H) 3.4 - 7.0 mg/dL [facility] Specimen Plasma specimen Performing Organization Address City/State/Zipcode Phone Number [facility] OF [address] [place] [phone] PATHOLOGY AND GENOMIC MEDICINE [facility] [address] * Parathyroid hormone (11/17/2018 4:26 AM BUSINESS OPERATIONS MANAGER) PTH 169 (H) 15 - 65 pg/mL [facility] Specimen Blood Performing Organization Address City/State/Zipcode Phone Number [facility] DEPARTMENT OF [address] [place] [address] PATHOLOGY AND GENOMIC MEDICINE [place] [phone] [place] [address] [facility] * B natriuretic peptide (11/17/2018 4:26 AM BUSINESS OPERATIONS MANAGER) Only the most recent of 4 results within the time period is included. Pathologist [facility] BNP 317 (H) 0 - 100 pg/mL [facility] Specimen Blood Performing Organization Address City/[facility] Phone Number [place] [phone] [place] [address] PATHOLOGY AND [facility] MEDICINE [address] * Ferritin level (11/17/2018 4:26 AM BUSINESS OPERATIONS MANAGER) [facility] Ferritin level 499 (H) 30 - 400 ng/mL [facility] Specimen Serum Performing Organization Address City/[facility] [place] [address] PATHOLOGY AND [facility] MEDICINE [address] * Comprehensive metabolic panel (11/17/2018 4:26 AM BUSINESS OPERATIONS MANAGER) Only the most recent of 2 results within the time period is included. [facility] Sodium 132 (L) 135 - 150 mEq/L [facility] Potassium 4.4 3.5 - 5.0 mEq/L [facility] Chloride 96 (L) 98 - 112 mEq/L [facility] CO2 20 (L) 24 - 31 mmol/L [facility] Anion gap 16@ANIO (H) 7 - 15 mEq/L [facility] BUN 55 (H) 7 - 18 mg/dL [facility] Creatinine 2.30 (H) 0.70 - 1.20 mg/dL [facility] Glucose 131 (H) 65 - 100 mg/dL [facility] Calcium 8.3 (L) 8.8 - 10.2 mg/dL [facility] Protein 6.4 6.3 - 8.3 g/dL [facility] Albumin 2.8 (L) 3.5 - 5.0 g/dL [facility] A/G ratio 0.8 0.7 - 3.8 [facility] Alkaline 50 0 - 129 U/L [place] phosphatase [facility] AST 36 10 - 50 U/L [facility] ALT 26 5 - 50 U/L [facility] Total bilirubin 0.4 0.2 - 1.2 mg/dL [facility] Specimen Plasma specimen Performing Organization Address City/[facility] Phone Number [facility] OF [facility] [place] [address] PATHOLOGY AND GENOMIC MEDICINE [address] * Streptococcus pneumoniae urinary antigen (11/16/2018 6:48 PM BUSINESS OPERATIONS MANAGER) Pathologist [facility] Strep pneumo Positive for Strep pneumoniae [place] urinary Ag antigen. (A) DENOMINATIONAL Comment: HOSPITAL Specimen Information Specimen Source: Urine Specimen Site: [place] Specimen Urine - [place] Performing Organization Address [facility] Phone Number [facility] DEPARTMENT OF [address] [place] [address] PATHOLOGY AND GENOMIC MEDICINE [address] * Sputum culture (11/16/2018 4:44 PM BUSINESS OPERATIONS MANAGER) [facility] Sputum culture Normal oral danyelle isolated. [place] isolate Comment: DENOMINATIONAL Specimen Information HOSPITAL Specimen Source: Sputum Specimen Site: Expectorated Specimen Sputum - Expectorated Performing Organization Address [facility] Phone Number [facility] DEPARTMENT OF [address] [place] [address] PATHOLOGY AND GENOMIC MEDICINE [address] * Echocardiogram complete w contrast and 3D if needed (11/16/2018 4:43 PM BUSINESS OPERATIONS MANAGER) Ao Root 3.57 cm [facility] Diameter AoV Area, Vmax 3.31 cm2 [facility] AoV Area, VTI 3.10 cm2 [facility] AoV Mean PG 4.67 mmHg [facility] AoV Peak PG 8.11 mmHg [facility] AoV Vmax 1.47 m/s [facility] AoV VTI 0.31 m [facility] BSA [place] 2.28 m2 [facility] BSA 2.24 m2 [facility] IVS,d 1.28 cm [facility] IVS/LVPW,2D 0.96 [facility] Left Atrium 5.13 cm [facility] Dimension Anterior LV,d 5.12 cm [facility] LV EF,2D 69.99 % [facility] LV,s 3.43 cm [facility] LVOT area 4.15 cm2 [facility] LVOT Diam,S 2.30 cm [facility] LVOT Vmax 1.18 m/s [facility] LVOT VTI 0.24 m [facility] LVPWD,d 1.34 cm [facility] PV Pk Grad 4.59 mmHg [facility] PV VMAX 1.07 m/s [facility] RVSP (TR) 26.37 mmHg [facility] TR Vpeak 2.02 mm/s [facility] MV E A ratio 1.08 [facility] TR pk grad 16.37 mmHg [facility] AoV area i VTI 1.38 cm2/m2 [facility] BSA [place] BMI 29.03 kg/m2 [facility] E wave 171.42 msec [facility] decelartion time MV Peak A Azeem 0.87 m/s [facility] MV valve area p 4.66 cm2 [facility] 1/2 method MV Peak E Azeem 0.94 m/s [facility] MV stenosis 47.23 ms [facility] pressure 1/2 time AV LVOT peak 5.10 mmHg [facility] gradient Ascending aorta 3.57 cm [facility] RVSP 26.37 mmHg [facility] Ao Root 3.57 cm [facility] Diameter LV SYS VOL 48.41 ml [facility] LV STAPLES VOL 125.02 ml [facility] LV SI Teich 2D 34.19 ml/m2 [facility] LV SV Teich 2D 76.61 ml [facility] LV Vol s Teich 48.41 ml [facility] PSAX LVOT SI 41.71 ml/m2 [facility] BSA [place] 2.29 m2 [facility] AoV Vmn 1.03 [facility] IVS s 2D 1.71 [facility] LV FS Teich 2D 33.05 [facility] MV AE ratio 0.93 [facility] LV FS Cube 2D 33.05 [facility] LVOT Vmn 0.78 [facility] Pt Size 185.42 [facility] Pt Wt 99.79 [facility] Aov area Vmn 3.24 cm2 [facility] LVOT mean grad 2.73 mmHg [facility] MAX Pred HR 148.70 [facility] 85 of MPHR 126.40 [facility] AoV area I VMN 1.44 cm2/m2 [facility] bsa Calc MPHR 148.70 bpm [facility] IVS pct thck 33.69 % [facility] PLAX LV SI Cube 2D 41.96 ml/m2 [facility] LV SV Cube 2D 94.02 ml [facility] LV vol d cube 134.33 ml [facility] 2D LV vol s cube 40.31 ml [facility] 2D LVPW pct thck 33.33 % [facility] PLAX LVPW s PLAX 1.78 cm [facility] MV Decel slope 5.51 m/s2 [facility] Pred Exer Dur 6.97 [facility] R1 Pred METS R1 7.31 [facility] Velocity Ratio 0.80 m/s [facility] (V1/V2) EF 61.28 % [facility] E/A ratio 1.08 [facility] Specimen Narrative Performed At [facility] Left ventricular systolic function is normal. Left Ventricular ejection fraction is 50 - 55%. Left atrium size is moderately dilated. Spectral Doppler shows impaired relaxation pattern of left ventricular diastolic filling. Performing Organization Address City/[facility] Phone Number [facility] [address] [place] [address] * Lactic acid level (11/16/2018 2:43 PM BUSINESS OPERATIONS MANAGER) Only the most recent of 3 results within the time period is included. Pathologist [facility] Lactic acid 1.2 0.5 - 2.2 mmol/L [facility] Specimen Blood Performing Organization Address City/[facility] Phone Number [address] [place] [address] PATHOLOGY AND GENOMIC MEDICINE [address] * Vancomycin level, random (11/16/2018 2:43 PM BUSINESS OPERATIONS MANAGER) Pathologist [facility] Vancomycin, 10.5 ug/mL [place] random Comment: DENOMINATIONAL [facility] Therapeutic Ranges: [facility] Peak30.0 HOSPITAL - 40.0 ug/mL Huba[facility]42.0 - 20.0 ug/mL Specimen Blood Performing Organization Address City/[facility] Phone Number [facility] OF [address] [facility] [address] [place] [phone] PATHOLOGY AND GENOMIC MEDICINE [place] [address] [facility] [address] * Mycoplasma pneumoniae Ab, IgM (11/16/2018 1:43 PM BUSINESS OPERATIONS MANAGER) Pathologist [facility] Mycoplasma 0.01 <=0.76 U/L [facility] pneumo IgM Comment: INTERPRETIVE INFORMATION:Mycoplasma pneumoniae Ab, IgM 0.76 U/L or less .......... Negative: No clinically significant amount of M. pneumoniae IgM antibody detected. 0.77 - 0.95 U/L ........... Low Positive: M. pneumoniae- specific IgM presumptively detected. Collection of a follow-up sample in 1-2 weeks is recommended to assure reactivity. 0.96 U/L or greater ....... Positive: Highly significant amount of M. pneumoniae- specific IgM antibody detected. However, low levels of IgM antibodies may occasionally persist for more than 12 months post-infection. Performed by [facility], [address] [place] [id number] [email or web address], Fernie Mcadams MD - Lab. Director Specimen Serum Performing Organization Address [facility]/Zipcode Phone Number [facility] [address] [place] [phone] [facility] [address] [place] [address] * Potassium level (11/16/2018 12:17 PM BUSINESS OPERATIONS MANAGER) [facility] Potassium 5.1 (H) 3.5 - 5.0 mEq/L [facility] Specimen Plasma specimen Performing Organization Address City/State/Zipcode Phone Number [facility] [address] [facility] [place] [phone] PATHOLOGY AND GENOMIC MEDICINE [place] [phone] [facility] [address] * Lactic acid level, SEPSIS - Now and repeat 2x every 3 hours (11/15/2018 7:11 PM BUSINESS OPERATIONS MANAGER) Only the most recent of 3 results within the time period is included. [facility] Lactic acid 3.3 (H) 0.5 - 2.2 mmol/L [facility] Specimen Blood Performing Organization Address City/State/[place] [address] PATHOLOGY AND [facility] MEDICINE [address] * Troponin (11/15/2018 7:11 PM BUSINESS OPERATIONS MANAGER) Only the most recent of 3 results within the time period is included. [facility] Troponin <0.30 0.00 - 0.30 ng/mL [place] Comment: [facility] 0.11 - 1.49 [facility] indicate increased risk of acute coronary syndrome. >=1.5 ng/ml Consistent with acute myocardial infarction. The diagnostic value of a single normal or non-diagnostic result is questionable.Serial samples at 2-6 hour intervals are required to rule out acute myocardial injury. Specimen Plasma specimen Performing Organization Address [facility] [place] [address] PATH[address] * ECG 12 lead (11/15/2018 10:48 AM BUSINESS OPERATIONS MANAGER) Pathologist [facility] Ventricular 88 [facility] MUSE rate Atrial rate 88 [facility] MUSE KS interval 168 [facility] QRSD interval 84 [facility] QT interval 398 [facility] QTC interval 481 [facility] P axis 1 47 [facility] M[facility] QRS axis 1 49 [facility] M[facility] T wave axis 95 [facility] M[facility] EKG impression Normal sinus rhythm-ST & T [facility] MUSE wave abnormality, consider lateral ischemia-Prolonged QT-Abnormal ECG-No previous ECGs available- Specimen Narrative Performed At Performing Organization Address City/[facility]/Zipcode Phone Number [facility] [address] [place] [address] * Blood culture, aerobic & anaerobic (11/15/2018 10:44 AM BUSINESS OPERATIONS MANAGER) Only the most recent of 2 results within the time period is included. [facility] Blood culture No growth after 5 days of [place] isolate incubation. DENOMINATIONAL Comment: HOSPITAL Specimen Information Specimen Source: Blood Specimen Site: L HAND Specimen Blood Performing Organization Address [facility] Phone Number [facility] DEPARTMENT OF [address] [place] [address] PATHOLOGY AND [facility] MEDICINE [address] * Lipase level (11/15/2018 10:44 AM BUSINESS OPERATIONS MANAGER) Lipase 15 13 - 60 U/L [facility] Specimen Plasma specimen Performing Organization Address [facility] Phone Number [facility] OF [address] [place] [address] PATHOLOGY AND [facility]IC[facility] [address] * Hepatic function panel (11/15/2018 10:44 AM BUSINESS OPERATIONS MANAGER) Albumin 3.4 (L) 3.5 - 5.0 g/dL [facility] Total bilirubin 0.4 0.2 - 1.2 mg/dL [facility] Bilirubin <0.2 0.0 - 0.4 mg/dL [place] direct [facility] Alkaline 50 0 - 129 U/L [place] phosphatase [facility] Protein 7.1 6.3 - 8.3 g/dL [facility] ALT 29 5 - 50 U/L [facility] AST 26 10 - 50 U/L [facility] Specimen Plasma specimen Performing Organization Address [facility] Phone [facility] OF [address] [place] [address] PATHOLOGY AND [facility] MEDICINE [address] * ECG ED Preliminary Interpretation - Not an Order (11/15/2018 10:29 AM BUSINESS OPERATIONS MANAGER) Narrative Performed At William Shepard MD 11/15/20188:17 PM ECG ED Preliminary Interpretation - Not an Order Performed by: William Shepard MD Authorized by: William Shepard MD ECG reviewed by ED Physician in the absence of a quality assurance/r&d lab technician: yes Interpretation: Interpretation: abnormal Rate: ECG rate:88 ECG rate assessment: normal Rhythm: Rhythm: sinus rhythm Ectopy: Ectopy: none QRS: QRS axis:Normal QRS intervals:Normal Conduction: Conduction: normal ST segments: ST segments:Normal T waves: T waves: inverted Inverted:I and aVL Q waves: Q waves:V4, V5 and V6 * CRITICAL CARE (11/15/2018 10:29 AM BUSINESS OPERATIONS MANAGER) Narrative Performed At William Shepard MD 11/15/20188:17 PM Critical Care Performed by: William Shepard MD Authorized by: William Shepard MD Critical care provider statement: Critical care time (minutes):35 Critical care time was exclusive of:Separately billable procedures and treating other patients and teaching time Critical care was necessary to treat or prevent imminent or life-threatening deterioration of the following conditions:Sepsis Critical care was time spent personally by me on the following activities:Development of treatment plan with patient or surrogate, discussions with primary provider, evaluation of patient's response to treatment, examination of patient, obtaining history from patient or surrogate, review of old charts, re-evaluation of patient's condition, pulse oximetry, ordering and review of radiographic studies, ordering and review of laboratory studies and ordering and performing treatments and interventions * Respiratory pathogen panel (11/15/2018 9:59 AM BUSINESS OPERATIONS MANAGER) [facility] Respiratory Negative for all pathogens [place] pathogen panel tested: DENOMINATIONAL Negative for Adenovirus HOSPITAL Negative for Coronavirus HKU1 Negative for Coronavirus NL63 Negative for Coronavirus 229E Negative for Coronavirus OC43 Negative for Human Metapneumovirus Negative for Rhinovirus/Enterovirus Negative for Influenza A Negative for Influenza A/H1 Negative for Influenza A/H3 Negative for Influenza A/H1-2009 Negative for Influenza B Negative for Parainfluenza Virus 1 Negative for Parainfluenza Virus 2 Negative for Parainfluenza Virus 3 Negative for Parainfluenza Virus 4 Negative for Respiratory Syncytial Virus Negative for Bordetella pertussis Negative for Chlamydophila pneumoniae Negative for Mycoplasma pneumoniae This real-time PCR assay detects the presence of nucleic acids (RNA or DNA) for the respiratory pathogens listed. A result of "Not-detected" does not exclude the possibility of the presence of one or more pathogens at concentrations less than the detectable limits of the assay. Comment: Specimen Information Specimen Source: Nasopharyngeal Specimen Site: swab Specimen Nasopharyngeal Performing Organization Address City/State/Zipcode Phone Number [facility] DEPARTMENT OF [address] [place] [address] PATHOLOGY AND GENOMIC MEDIC[facility] [address] [place], [place] [id number] HOSPITAL * Influenza antigen (11/15/2018 9:59 AM BUSINESS OPERATIONS MANAGER) Influenza Negative for Influenza A/B [place] antigen antigen. ERUM ROMAN Comment: NORBERTO Specimen Information HOSPITAL Specimen Source: Nares Specimen Site: Left Specimen Nares - Left Performing Organization Address City/State/Zipcode Phone Number [facility] [address] [place] [address] PATHOLOGY AND GENOMIC MEDICINE JOSE ALBERTO [address] [place], [place] [id number] [place] [address] after 04/05/2018 Insurance Type Payer Benefit Subscriber ID Effective Phone Address Plan / Dates Group HMO AETNA MEDICARE AETNA xxxxxxxx 2012- MEDICARE Present HMO/PPO [facility] Advance Directives Patient has advance care planning documents on file. For more information, jerson e contact: Jose Alberto Cheema [address] [place] [id number]
--- NOTE | 2019-04-06 12:30 | NUR ---
1230 received pt for pre procedure stat K ordered and lab call to draw ds/rn
[2019-04-06 13:42] VITALS: BP 150/74
[2019-04-06] MEDS ORDERED: MIDAZOLAM HCL 2 MG/2 ML VIAL ONE ×2 (14:18→14:46)
[2019-04-06] MEDS ORDERED: FENTANYL CITRATE/PF 100MCG/2 ML INJ ONE (14:19)
[2019-04-06] MEDS ORDERED: HEPARIN SOD/SOD CHLORIDE 2,000 ML ONE (14:19)
[2019-04-06] MEDS ORDERED: IOPAMIDOL 370 MG/ML 200 ML INFUS..BTL INJ ONE (14:19)
[2019-04-06] MEDS ORDERED: SODIUM CHLORIDE 0.9% 1000ML 1,000 ML ONE ×2 (14:19→14:47)
[2019-04-06] MEDS ORDERED: LIDOCAINE HCL 2% LOCAL 20 ML VIAL ONE (14:19)
[2019-04-06] MEDS ORDERED: VERAPAMIL HCL 2.5 MG/ML 2 ML VIAL ONE (14:47)
[2019-04-06] MEDS ORDERED: IOPAMIDOL 300MG/ML 100 ML INFUS..BTL IV ONE (14:53)
[2019-04-06] MEDS ORDERED: TICAGRELOR 90 MG TABLET ONE (15:11)
[2019-04-06] MEDS ORDERED: ASPIRIN 325 MG TAB ONE (15:11)
--- NOTE | 2019-04-06 15:13 | NUR ---
1513 Received verbal order tele obsv bed placed in [facility] and tele tracker per FELIX Ervin request. Dr Godinez Peripheral angio. ds/rn
--- NOTE | 2019-04-06 15:15 | NUR ---
1515 received dc orders and cancel for tele observation request. ds/rn
[2019-04-06 15:30] VITALS: BP 135/72
--- NOTE | 2019-04-06 15:30 | NUR ---
1530 Received pt from [facility] to rm #[address] Godinez. SFA fix with CSI and Balloon.Back to baseline orientation Resp shallow and regular. 98% Sat Abdomen soft and non tender Denies necessity to defecate or urinate. Bilateral PPx4 Pt/Dp. Family at bedside understands POC aware dc at 4pm. Assisted with PO intake. Tolerated well.iv infusing well no s/s infiltration. ds/rn
--- OUTSIDE RECORDS SUMMARY | 2019-04-06 15:34 | XMS REPORT | Clinical Summary ---
Author Author [facility] Address Unknown Phone Unavailable Care Team Providers [facility] Aides Teacher Name Role Phone Asked, No Pcp PCP [...] minerals tablet by mouth daily. 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) 11/15/2018 [facility] General Internal Medicine - Encounter 11/22/2018 11/15/2018 [...] Taken Vital Sign Reading 11/22/2018 3:01 PM [employer] EQUIPMENT OPERATOR Blood Pressure 142/68 11/22/2018 3:01 PM [employer] EQUIPMENT OPERATOR Pulse 82 11/22/2018 3:01 PM [employer] EQUIPMENT OPERATOR Temperature 36.7 C (98.1 F) 11/22/2018 3:01 PM [employer] EQUIPMENT OPERATOR Respiratory Rate 18 11/22/2018 3:01 PM [employer] EQUIPMENT OPERATOR Oxygen Saturation 92% - Inhaled Oxygen - Concentration 11/15/2018 11:08 AM [employer] EQUIPMENT OPERATOR Weight 101 kg (223 lb) 11/15/2018 11:08 AM [employer] EQUIPMENT OPERATOR Height 180.3 cm (5' 11") 11/15/2018 11:08 AM [employer] EQUIPMENT OPERATOR Body Mass Index 31.1 Plan of Treatment Health Maintenance Due Date Last Done Comments COLONOSCOPY SCREENING 1997 SHINGLES VACCINES (#1) 1997 65+ PNEUMOCOCCAL VACCINE 2012 (1 of 2 - PCV13) INFLUENZA VACCINE 05/10/2019 Procedures Comments Procedure Name Priority Date/Time Associated Diagnosis POC GLUCOSE Routine 11/22/2018 11:02 AM [employer] E[employer]IP[employer] OPERATOR XR CHEST 1 VW PORTABLE Routine 11/22/2018 8:18 AM [employer] EQUIPMENT OPERATOR POC GLUCOSE Routine 11/22/2018 6:04 AM [employer] EQUIPMENT OPERATOR MANUAL DIFFERENTIAL Routine 11/22/2018 5:15 AM [employer] EQUIPMENT OPERATOR ESTIMATED GFR Routine 11/22/2018 5:15 AM [employer] EQUIPMENT OPERATOR MAGNESIUM LEVEL Routine 11/22/2018 5:15 AM [employer] EQUIPMENT OPERATOR BASIC METABOLIC PANEL Routine 11/22/2018 5:15 AM [employer] EQUIPMENT OPERATOR CBC WITH PLATELET AND Routine 11/22/2018 DIFFERENTIAL 5:15 AM [employer] EQUIPMENT OPERATOR POC GLUCOSE Routine 11/21/2018 7:57 PM [employer] EQUIPMENT OPERATOR POC GLUCOSE Routine 11/21/2018 3:48 PM [employer] EQUIPMENT OPERATOR POC GLUCOSE Routine 11/21/2018 11:23 AM [employer] EQUIPMENT OPERATOR POC GLUCOSE Routine 11/21/2018 7:05 AM [employer] EQUIPMENT OPERATOR XR CHEST 1 VW PORTABLE Routine 11/21/2018 6:47 AM [employer] EQUIPMENT OPERATOR ESTIMATED GFR Routine 11/21/2018 3:30 AM [employer] EQUIPMENT OPERATOR MAGNESIUM LEVEL Routine 11/21/2018 3:30 AM [employer] EQUIPMENT OPERATOR BASIC METABOLIC PANEL Routine 11/21/2018 3:30 AM [employer] EQUIPMENT OPERATOR HC COMPLETE BLD COUNT Routine 11/21/2018 W/AUTO DIFF 3:30 AM [employer] EQUIPMENT OPERATOR ESTIMATED GFR Routine 11/20/2018 8:22 PM [employer] EQUIPMENT OPERATOR MAGNESIUM LEVEL Routine 11/20/2018 8:22 PM [employer] EQUIPMENT OPERATOR BASIC METABOLIC PANEL Routine 11/20/2018 8:22 PM [employer] EQUIPMENT OPERATOR POC GLUCOSE Routine 11/20/2018 4:13 PM [employer] EQUIPMENT OPERATOR POC GLUCOSE Routine 11/20/2018 11:33 AM [employer] EQUIPMENT OPERATOR POC GLUCOSE Routine 11/20/2018 7:27 AM [employer] EQUIPMENT OPERATOR XR CHEST 1 VW PORTABLE Routine 11/20/2018 6:42 AM [employer] EQUIPMENT OPERATOR ESTIMATED GFR Routine 11/20/2018 4:14 AM [employer] EQUIPMENT OPERATOR MAGNESIUM LEVEL Routine 11/20/2018 4:14 AM [employer] EQUIPMENT OPERATOR HC COMPLETE BLD COUNT Routine 11/20/2018 W/AUTO DIFF 4:14 AM [employer] EQUIPMENT OPERATOR BASIC METABOLIC PANEL Routine 11/20/2018 4:14 AM [employer] EQUIPMENT OPERATOR POC GLUCOSE Routine 11/19/2018 9:09 PM [employer] EQUIPMENT OPERATOR POC GLUCOSE Routine 11/19/2018 4:00 PM [employer] EQUIPMENT OPERATOR POC GLUCOSE Routine 11/19/2018 11:11 AM [employer] EQUIPMENT OPERATOR XR CHEST 1 VW PORTABLE Routine 11/19/2018 7:30 AM [employer] EQUIPMENT OPERATOR POC GLUCOSE Routine 11/19/2018 7:00 AM [employer] EQUIPMENT OPERATOR ESTIMATED GFR Timed 11/19/2018 4:53 AM [employer] EQUIPMENT OPERATOR PHOSPHORUS LEVEL Timed 11/19/2018 4:53 AM [employer] EQUIPMENT OPERATOR MAGNESIUM LEVEL Timed 11/19/2018 4:53 AM [employer] EQUIPMENT OPERATOR CBC WITH PLATELET AND Timed 11/19/2018 DIFFERENTIAL 4:53 AM [employer] EQUIPMENT OPERATOR BASIC METABOLIC PANEL Timed 11/19/2018 4:53 AM [employer] EQUIPMENT OPERATOR IONIZED CALCIUM Routine 11/19/2018 4:53 AM [employer] EQUIPMENT OPERATOR ARTERIAL BLOOD GAS STAT 11/18/2018 11:13 PM [employer] EQUIPMENT OPERATOR XR CHEST 1 VW PORTABLE STAT 11/18/2018 11:07 PM [employer] EQUIPMENT OPERATOR GRAM STAIN Routine 11/18/2018 8:05 PM [employer] EQUIPMENT OPERATOR URINE CULTURE Routine 11/18/2018 8:05 PM [employer] EQUIPMENT OPERATOR ESTIMATED GFR Routine 11/18/2018 7:19 PM [employer] EQUIPMENT OPERATOR URINE PROTEIN/CREATININE Routine 11/18/2018 RATIO, RANDOM 7:19 PM [employer] EQUIPMENT OPERATOR URINALYSIS SCREEN AND Routine 11/18/2018 MICROSCOPY, WITH REFLEX 7:19 PM [employer] E[employer]IPMENT OPERATOR TO CULTURE LEGIONELLA URINARY Routine 11/18/2018 ANTIGEN 4:13 PM [employer] EQUIPMENT OPERATOR POC GLUCOSE Routine 11/18/2018 4:01 PM [employer] EQUIPMENT OPERATOR POC GLUCOSE Routine 11/18/2018 11:06 AM [employer] EQUIPMENT OPERATOR XR CHEST 1 VW PORTABLE Routine 11/18/2018 7:35 AM [employer] EQUIPMENT OPERATOR POC GLUCOSE Routine 11/18/2018 7:06 AM [employer] EQUIPMENT OPERATOR IONIZED CALCIUM Routine 11/18/2018 4:58 AM [employer] EQUIPMENT OPERATOR ESTIMATED GFR Timed 11/18/2018 4:51 AM [employer] EQUIPMENT OPERATOR PHOSPHORUS LEVEL Timed 11/18/2018 4:51 AM [employer] EQUIPMENT OPERATOR MAGNESIUM LEVEL Timed 11/18/2018 4:51 AM [employer] EQUIPMENT OPERATOR CBC WITH PLATELET AND Timed 11/18/2018 DIFFERENTIAL 4:51 AM [employer] EQUIPMENT OPERATOR BASIC METABOLIC PANEL Timed 11/18/2018 4:51 AM [employer] EQUIPMENT OPERATOR POC GLUCOSE Routine 11/18/2018 4:48 AM [employer] EQUIPMENT OPERATOR POC GLUCOSE Routine 11/18/2018 12:34 AM [employer] EQUIPMENT OPERATOR POC GLUCOSE Routine 11/17/2018 8:27 PM [employer] EQUIPMENT OPERATOR US DUPLEX VENOUS LOWER Routine 11/17/2018 EXTREMITY BILATERAL 7:41 PM [employer] EQUIPMENT OPERATOR POC GLUCOSE Routine 11/17/2018 4:30 PM [employer] EQUIPMENT OPERATOR POC GLUCOSE Routine 11/17/2018 1:09 PM [employer] EQUIPMENT OPERATOR US RENAL Routine 11/17/2018 10:50 AM [employer] EQUIPMENT OPERATOR POC GLUCOSE Routine 11/17/2018 10:35 AM [employer] EQUIPMENT OPERATOR MANUAL DIFFERENTIAL Routine 11/17/2018 10:35 AM [employer] EQUIPMENT OPERATOR CBC WITH PLATELET AND Routine 11/17/2018 DIFFERENTIAL 10:35 AM [employer] EQUIPMENT OPERATOR VENOUS BLOOD GAS Routine 11/17/2018 10:30 AM [employer] EQUIPMENT OPERATOR POC GLUCOSE Routine 11/17/2018 8:37 AM [employer] EQUIPMENT OPERATOR XR CHEST 1 VW PORTABLE Routine 11/17/2018 7:08 AM [employer] EQUIPMENT OPERATOR POC GLUCOSE Routine 11/17/2018 5:07 AM [employer] EQUIPMENT OPERATOR ESTIMATED GFR Routine 11/17/2018 4:26 AM [employer] EQUIPMENT OPERATOR TOTAL IRON BINDING Routine 11/17/2018 CAPACITY 4:26 AM [employer] EQUIPMENT OPERATOR FERRITIN LEVEL Routine 11/17/2018 4:26 AM [employer] EQUIPMENT OPERATOR B NATRIURETIC PEPTIDE Routine 11/17/2018 4:26 AM [employer] EQUIPMENT OPERATOR COMPREHENSIVE METABOLIC Routine 11/17/2018 PANEL 4:26 AM [employer] EQUIPMENT OPERATOR PHOSPHORUS LEVEL Routine 11/17/2018 4:26 AM [employer] EQUIPMENT OPERATOR MAGNESIUM LEVEL Routine 11/17/2018 4:26 AM [employer] EQUIPMENT OPERATOR VITAMIN D 25 HYDROXY Routine 11/17/2018 LEVEL 4:26 AM [employer] EQUIPMENT OPERATOR URIC ACID LEVEL Routine 11/17/2018 4:26 AM [employer] EQUIPMENT OPERATOR PARATHYROID HORMONE Routine 11/17/2018 4:26 AM [employer] EQUIPMENT OPERATOR IONIZED CALCIUM Routine 11/17/2018 4:26 AM [employer] EQUIPMENT OPERATOR POC GLUCOSE Routine 11/17/2018 1:31 AM [employer] EQUIPMENT OPERATOR POC GLUCOSE Routine 11/16/2018 11:23 PM [employer] EQUIPMENT OPERATOR POC GLUCOSE Routine 11/16/2018 7:30 PM [employer] EQUIPMENT OPERATOR URINALYSIS SCREEN AND Routine 11/16/2018 MICROSCOPY, WITH REFLEX 6:48 PM [employer] EQUIPMENT OPERATOR TO CULTURE URINE CULTURE Routine 11/16/2018 6:48 PM [employer] EQUIPMENT OPERATOR STREPTOCOCCUS PNEUMONIAE Routine 11/16/2018 URINARY ANTIGEN 6:48 PM [employer] EQUIPMENT OPERATOR LEGIONELLA URINARY Routine 11/16/2018 ANTIGEN 6:48 PM [employer] EQUIPMENT OPERATOR POC GLUCOSE Routine 11/16/2018 6:36 PM [employer] EQUIPMENT OPERATOR POC GLUCOSE Routine 11/16/2018 6:07 PM [employer] EQUIPMENT OPERATOR VENOUS BLOOD GAS STAT 11/16/2018 4:44 PM [employer] EQUIPMENT OPERATOR GRAM STAIN Routine 11/16/2018 4:44 PM [employer] EQUIPMENT OPERATOR SPUTUM CULTURE Routine 11/16/2018 4:44 PM [employer] EQUIPMENT OPERATOR ECHOCARDIOGRAM 2D Routine 11/16/2018 COMPLETE W MMODE SPECTRAL 4:43 PM [employer] EQUIPMENT OPERATOR COLOR DOPPLER ([id number]) MANUAL DIFFERENTIAL STAT 11/16/2018 2:43 PM [employer] EQUIPMENT OPERATOR VANCOMYCIN LEVEL, RANDOM STAT 11/16/2018 2:43 PM [employer] EQUIPMENT OPERATOR MAGNESIUM LEVEL STAT 11/16/2018 2:43 PM [employer] EQUIPMENT OPERATOR PHOSPHORUS LEVEL STAT 11/16/2018 2:43 PM [employer] EQUIPMENT OPERATOR COMPREHENSIVE METABOLIC STAT 11/16/2018 PANEL 2:43 PM [employer] EQUIPMENT OPERATOR ESTIMATED GFR STAT 11/16/2018 2:43 PM [employer] EQUIPMENT OPERATOR LACTIC ACID LEVEL STAT 11/16/2018 2:43 PM [employer] EQUIPMENT OPERATOR IONIZED CALCIUM STAT 11/16/2018 2:43 PM [employer] EQUIPMENT OPERATOR CBC WITH PLATELET AND STAT 11/16/2018 DIFFERENTIAL 2:43 PM [employer] EQUIPMENT OPERATOR MYCOPLASMA PNEUMONIAE AB, Routine 11/16/2018 IGM 1:43 PM [employer] EQUIPMENT OPERATOR POTASSIUM LEVEL Routine 11/16/2018 12:17 PM [employer] EQUIPMENT OPERATOR POC GLUCOSE Routine 11/16/2018 12:03 PM [employer] EQUIPMENT OPERATOR POC GLUCOSE Routine 11/16/2018 6:11 AM [employer] EQUIPMENT OPERATOR LACTIC ACID LEVEL Routine 11/16/2018 5:08 AM [employer] EQUIPMENT OPERATOR ESTIMATED GFR Routine 11/16/2018 5:08 AM [employer] EQUIPMENT OPERATOR B NATRIURETIC PEPTIDE Routine 11/16/2018 5:08 AM [employer] EQUIPMENT OPERATOR BASIC METABOLIC PANEL Routine 11/16/2018 5:08 AM [employer] EQUIPMENT OPERATOR B NATRIURETIC PEPTIDE Routine 11/15/2018 10:32 PM [employer] EQUIPMENT OPERATOR LACTIC ACID LEVEL Routine 11/15/2018 10:32 PM [employer] EQUIPMENT OPERATOR POC GLUCOSE Routine 11/15/2018 9:12 PM [employer] EQUIPMENT OPERATOR US RENAL Routine 11/15/2018 8:58 PM [employer] EQUIPMENT OPERATOR TROPONIN Timed 11/15/2018 7:11 PM [employer] EQUIPMENT OPERATOR LACTIC ACID LEVEL, SEPSIS Timed 11/15/2018 - NOW AND REPEAT 2X EVERY 7:11 PM [employer] EQUIPMENT OPERATOR 3 HOURS POC GLUCOSE Routine 11/15/2018 4:49 PM [employer] EQUIPMENT OPERATOR TROPONIN Timed 11/15/2018 3:12 PM [employer] EQUIPMENT OPERATOR LACTIC ACID LEVEL, SEPSIS Timed 11/15/2018 - NOW AND REPEAT 2X EVERY 3:12 PM [employer] EQUIPMENT OPERATOR 3 HOURS XR CHEST 1 VW PORTABLE STAT 11/15/2018 11:29 AM [employer] EQUIPMENT OPERATOR ECG 12-LEAD STAT 11/15/2018 10:48 AM [employer] EQUIPMENT OPERATOR MANUAL DIFFERENTIAL STAT 11/15/2018 10:44 AM [employer] EQUIPMENT OPERATOR ESTIMATED GFR STAT 11/15/2018 10:44 AM [employer] EQUIPMENT OPERATOR B NATRIURETIC PEPTIDE STAT 11/15/2018 10:44 AM [employer] EQUIPMENT OPERATOR TROPONIN STAT 11/15/2018 10:44 AM [employer] EQUIPMENT OPERATOR LIPASE LEVEL STAT 11/15/2018 10:44 AM [employer] EQUIPMENT OPERATOR LACTIC ACID LEVEL, SEPSIS STAT 11/15/2018 - NOW AND REPEAT 2X EVERY 10:44 AM [employer] EQUIPMENT OPERATOR 3 HOURS HEPATIC FUNCTION PANEL STAT 11/15/2018 10:44 AM [employer] EQUIPMENT OPERATOR BASIC METABOLIC PANEL STAT 11/15/2018 10:44 AM [employer] EQUIPMENT OPERATOR CBC WITH PLATELET AND STAT 11/15/2018 DIFFERENTIAL 10:44 AM [employer] EQUIPMENT OPERATOR BLOOD CULTURE, AEROBIC & Routine 11/15/2018 ANAEROBIC 10:44 AM [employer] EQUIPMENT OPERATOR BLOOD CULTURE, AEROBIC & Routine 11/15/2018 ANAEROBIC 10:40 AM [employer] EQUIPMENT OPERATOR ECG ED PRELIMINARY Routine 11/15/2018 INTERPRETATION 10:29 AM [employer] EQUIPMENT OPERATOR [place] CRITICAL CARE, E/M Routine 11/15/2018 30-74 MINUTES 10:29 AM [employer] EQUIPMENT OPERATOR RESPIRATORY PATHOGEN STAT 11/15/2018 PANEL 9:59 AM [employer] EQUIPMENT OPERATOR INFLUENZA ANTIGEN Routine 11/15/2018 9:59 AM [employer] EQUIPMENT OPERATOR after 04/05/2018 Results * POC glucose (11/22/2018 11:02 AM [employer] EQUIPMENT OPERATOR) Only the most recent of 33 results within the time period is included. POC glucose 155 (H) 65 - 100 mg/dL [place] Comment: ERUM ROMAN Meter ID: [id number] [facility] Health Physics Technician: Anupama [facility] Specimen Performing Organization Address City/State/Zipcode Phone Number [facility] DEPARTMENT OF [address] [place] [address] PATHOLOGY AND GENOMIC MEDICINE [place] ERUM ROMAN [address] [address] [facility] * XR Chest 1 Vw Portable (11/22/2018 8:18 AM [employer] EQUIPMENT OPERATOR) Only the most recent of 8 results [...] There is no pneumothorax. Johann Mariee MD Sleeping Car Conductor, PGY - 2 I personally reviewed the images and the resident's findings and agree with the final report. [facility]-[id number] Procedure Note Hm Interface, Radiology Results Incoming - 11/22/2018 10:22 AM [employer] EQUIP[employer] OPERATOR EXAMINATION: XR CHEST 1 VW PORTABLE CLINICAL HISTORY: Respiratory Failure or Arrest COMPARISON: Chest x-ray from 11/21/2018 IMPRESSION: 1. Median sternotomy wires are intact. 2. Stable cardiac silhouette. Calcified atherosclerosis of the aortic arch is noted. 3. The right midlung consolidation has continued to improve and is now nearly resolved. There is no pneumothorax. Johann Mariee MD Sleeping Car Conductor, PGY - 2 I personally reviewed the images and the resident's findings and agree with the final report. [facility]-[id number] Performing Organization Address City/State/Zipcode Phone Number [facility] [address] [place] [address] * Estimated GFR (11/22/2018 5:15 AM [employer] EQUIPMENT OPERATOR) Only the most recent of 11 results within the time period is included. Estimated GFR 55 (A) mL/min/1.73 m2 [place] Comment: ERUM ROMAN [facility] G1 >=90 Normal or high G2 60-89Mildly decreased [id number] Mildly to moderately decreased [id number] Moderately to severely decreased G4 15-29Severely decreased G5 <15Kidney failure The eGFR was calculated using the Chronic Kidney Disease Epidemiology Collaboration (CKD-EPI) equation. Interpretation is based on recommendations of the National Kidney Foundation-Kidney Disease Outcomes Quality Initiative (NKF-KDOQI) published in 2014. Specimen Plasma specimen Performing Organization Address City/[facility] [address]/Zipcode Phone Number [facility] [address] [place] [address] PATHOLOGY AND [facility] [address] * Manual differential (11/22/2018 5:15 AM [employer] EQUIPMENT OPERATOR) Only the most recent of 4 results within the time period is included. Manual PERFORMED [place] differential [facility] Neutrophils 59.0 36.0 - 66.0 % [facility] Lymphocytes 27.0 24.0 - 44.0 % [facility] Monocytes 6.0 0.0 - 6.0 % [facility] Eosinophils 2.0 0.0 - 6.0 % [facility] Basophils 0.0 0.0 - 1.2 % [facility] Metamyelocytes 0 0 - 1 % [facility] Myelocytes 2 (H) 0 - 1 % [facility] Promyelocytes 0 0 - 1 % [facility] Reactive 4.0 [place] lymphocytes [facility] Platelet slide Hunter adequate [place] review [facility] Anisocytosis slight [facility] Tear drop cells Occasional [facility] Ovalocytes Occasional [facility] Specimen Performing Organization Address City/State/Zipcode Phone Number [facility] [address] [facility] [address] [place] [address] PATHOLOGY AND [facility] [address] * CBC with platelet and differential (11/22/2018 5:15 AM [employer] EQUIPMENT OPERATOR) Only the most recent of 8 results within the time period is included. WBC 11.0 4.2 - 11.0 k/uL [facility] RBC 4.13 4.04 - 5.86 m/uL [facility] HGB 11.4 (L) 13.0 - 17.3 g/dL [facility] HCT 35.4 34.0 - 45.0 % [facility] MCV 85.7 80.0 - 98.0 fL [facility] MCH 27.6 27.0 - 34.0 pg [facility] MCHC 32.2 31.5 - 36.5 g/dL [facility] RDW - SD 49.4 37.0 - 51.0 fL [facility] MPV 11.4 (H) 7.4 - 10.4 fL [facility] Platelet count 162 150 - 400 k/uL [facility] Nucleated RBC 0.00 /100 WBC [facility] Neutrophils 59.0 36.0 - 66.0 % [facility] Lymphocytes 27.0 24.0 - 44.0 % [facility] Monocytes 6.0 0.0 - 6.0 % [facility] Eosinophils 2.0 0.0 - 6.0 % [facility] Basophils 0.0 0.0 - 1.2 % [facility] Specimen Blood Performing Organization Address City/[facility] [address]/Zipcode Phone Number [place] [phone] [place] [address] PATHOLOGY AND GENOMIC MEDICINE [address] * Magnesium level (11/22/2018 5:15 AM [employer] EQUIPMENT OPERATOR) Only the most recent of 8 results within the time period is included. Magnesium 1.60 1.60 - 2.40 mg/dL [facility] Specimen Plasma specimen Performing Organization Address City/[facility] [address]/[facility] [place] [address] PATHOLOGY AND GENOMIC MEDICINE [address] * Basic metabolic panel (11/22/2018 5:15 AM [employer] EQUIPMENT OPERATOR) Only the most recent of 8 results within the time period is included. Sodium 136 135 - 150 mEq/L [facility] Potassium 3.7 3.5 - 5.0 mEq/L [facility] Chloride 93 (L) 98 - 112 mEq/L [facility] CO2 29 24 - 31 mmol/L [facility] Anion gap 14@ANIO 7 - 15 mEq/L [facility] BUN 46 (H) 7 - 18 mg/dL [facility] Creatinine 1.30 (H) 0.70 - 1.20 mg/dL [facility] Glucose 103 (H) 65 - 100 mg/dL [facility] Calcium 9.9 8.8 - 10.2 mg/dL [facility] Specimen Plasma specimen Performing Organization Address City/[facility] [address]/[facility] [place] [address] PATHOLOGY AND GENOMIC MEDICINE [address] * Phosphorus level (11/19/2018 4:53 AM [employer] EQUIPMENT OPERATOR) Only the most recent of 4 results within the time period is included. Pathologist [facility] Phosphorus 3.1 2.4 - 4.5 mg/dL [facility] Specimen Plasma specimen Performing Organization Address City/[facility] [address]/[facility] [place] [address] PATHOLOGY AND GENOMIC MEDICINE [address] * Ionized calcium (11/19/2018 4:53 AM [employer] EQUIPMENT OPERATOR) Only the most recent of 4 results within the time period is included. pH 7.41 [facility] Ionized calcium 1.10 (L) 1.11 - 1.32 mmol/L [facility] Specimen Plasma specimen Performing Organization Address City/[facility] [address]/[facility] [place] [address] PATHOLOGY AND GENOMIC MEDICINE [facility] [address] * Arterial blood gas (11/18/2018 11:13 PM [employer] EQUIPMENT OPERATOR) Health Physics Technician RIP TORRES,RT [facility] Collection site RRA [facility] O2 therapy VOPOTHERM [facility] Respiratory 15 bpm [place] rate [facility] pH, arterial 7.426 7.350 - 7.450 units [facility] pCO2, arterial 40.2 35.0 - 45.0 mmHg [facility] pO2, arterial 62.3 (L) 80.0 - 90.0 mmHg [facility] O2 saturation, 92.3 (L) 95.0 - 100.0 % [place] arterial [facility] Base excess, 2.0 mEq/L [place] arterial [facility] Bicarbonate 26.4 21.0 - 28.0 mEq/L [facility] O2 content 12.7 VOL% [facility] FiO2, inspired 40.0 % [place] O2% [facility] Carboxyhemoglob 0.6 0.0 - 1.4 % [place] in Comment: [facility] Reference Ranges: [facility] Carboxyhemoglobin [facility] Non smoker: 0.0 - 2.0% Smoker: 2.1 - 5.0% Heavy smoker: 5.1 - 9% Methemoglobin 0.0 0.0 - 1.0 % [facility] Hemoglobin, 9.8 (L) 14.0 - 18.0 g/dL [place] blood gas [facility] pO2, A-a 183.0 mmHg [facility] Specimen Blood Performing Organization Address City/State/Zipcode Phone Number [facility] DEPARTMENT OF [address] [place] [address] PATHOLOGY AND [facility] [place] [id number] [place] [address] * Gram stain (11/18/2018 8:05 PM [employer]) Only the most recent of 2 results within the time period is included. Gram stain No WBC's or organisms seen. [place] result Comment: [facility] Specimen [facility] Specimen Source: Urine Specimen Site: Clean catch Specimen Urine Performing Organization Address City/[facility] [address]/Zipcode Phone Number [facility] DEPARTMENT [address] [address] PATHOLOGY AND GENOMIC MEDICINE [address] * Urine culture (11/18/2018 8:05 PM SUGAR [employer] PLANTING EQUIPMENT OPERATOR) Only the most recent of 2 results within the time period is included. Pathologist [facility] Urine culture No growth after 24 hours [place] isolate Comment: PRESYBETERIAN Specimen [facility] Specimen Source: Urine Specimen Site: Clean catch Specimen Urine Performing Organization Address City/[facility] [address]/[facility] Phone Number [facility] DEPARTMENT OF [address] [place] [address] PATHOLOGY AND GENOMIC MEDICINE [address] * Urinalysis screen and microscopy, with reflex to culture (11/18/2018 7:19 PM [employer]ANTING EQUIPMENT OPERATOR) Only the most recent of 2 results within the time period is included. Specimen site Clean catch [facility] Color, UA Yellow [facility] Appearance, UA Cloudy [facility] Specific 1.012 1.001 - 1.035 [place] gravity, [facility] pH, UA 5.0 5.0 - 8.5 [facility] Protein, UA Negative Negative [facility] Glucose, UA Negative Negative [facility] Ketones, UA Negative Negative [facility] Bilirubin, UA Negative Negative [facility] Blood, UA Large (A) Negative [facility] Nitrite, UA Negative Negative [facility] Urobilinogen, Negative <2.0 [facility] Leukocyte Negative Negative [place] esterase, UA [facility] Epithelial Few /HPF [place] cells, [facility] WBC, UA 3 (H) 0 - 1 /HPF [facility] RBC, UA 145 (H) 0 - 5 /HPF [facility] Bacteria, UA Trace None seen [facility] Yeast, UA None seen [facility] Yeast with None seen [place] pseudohyphae, [facility] Specimen Urine Performing Organization Address City/[facility] [address]/Zipcode Phone Number [facility] DEPARTMENT OF [address] [facility] [place] [address] PATHOLOGY AND GENOMIC MEDICINE [address] * Urine protein/creatinine ratio, random (11/18/2018 7:19 PM [employer]ANTING EQUIPMENT OPERATOR) Protein, urine 12 mg/dL [place] random [facility] Protein 6.4 6.3 - 8.3 g/dL [facility] Protein 1.88 [place] clearance, [facility] Creatinine, 60 mg/dL [place] urine, random [facility] Creatinine 1.80 (H) 0.70 - 1.20 mg/dL [facility] Urine 33.33 [place] creatinine [facility] Prot/creat 5.64 [place] ratio, urine [facility] Specimen Urine Performing Organization Address City/[facility] [address]/Zipcode Phone Number [facility] DEPARTMENT OF [address] [place] [address] PATHOLOGY AND GENOMIC MEDICINE [address] * Legionella urinary antigen (11/18/2018 4:13 PM [employer]ING EQUIPMENT OPERATOR) Only the most recent of 2 results within the time period is included. Legionella Negative for Legionella [place] urinary antigen serogroup 1 antigen. PRESYBETERIAN Comment: HOSPITAL Specimen Information Specimen Source: Urine Specimen Site: Clean catch Specimen Urine Performing Organization Address City/State/Zipcode Phone Number [facility] DEPARTMENT OF [address] [place] [address] PATHOLOGY AND GENOMIC MEDICINE [address] [address] [facility] * Us duplex venous lower extremity (11/17/2018 7:41 PM [employer]ANTING EQUIPMENT OPERATOR) Specimen Narrative Performed At EXAMINATION:US DUPLEX VENOUS [...] involving the right or left lower extremity. [facility]-[id number] Procedure Note Interface, Radiology Results Incoming - 11/17/2018 7:53 PM [employer]ING EQUIPMENT OPERATOR EXAMINATION: US DUPLEX VENOUS LOWER EXTREMITY BILATERAL [...] involving the right or left lower extremity. [facility]-[id number] Performing Organization Address City/State/Zipcode Phone Number [facility] [address] [place] [address] * US Renal (11/17/2018 10:50 AM [employer]ING EQUIPMENT OPERATOR) Only the most recent of 2 results within the time period is included. Specimen Narrative Performed At EXAM: [facility] Renal ultrasound. INDICATION: Renal failure. 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 INDICATION: Renal failure. COMPARISON: [...] Performing Organization Address City/State/Zipcode Phone Number [facility] [address] [place] [address] * Venous blood gas (11/17/2018 10:30 AM SU[employer]ING EQUIPMENT OPERATOR) Only the most recent of 2 results within the time period is included. Health Physics Technician [place] [facility] Collection site R. Hand [facility] O2 therapy [place] [facility] Respiratory 14 bpm [place] rate [facility] pH, venous 7.314 (L) 7.320 - 7.420 units [facility] pCO2, venous 40.2 (L) 45.0 - 51.0 mmHg [facility] pO2, venous 36.8 25.0 - 40.0 mmHg [facility] O2 saturation, 64.9 40.0 - 70.0 % [place] venous [facility] Base excess, -5.8 (L) -2.0 - 2.0 mEq/L [place] venous [facility] Bicarbonate 20.4 (L) 21.0 - 28.0 mEq/L [facility] O2 content 9.2 VOL% [facility] FiO2, inspired 40.0 % [place] O2% [facility] Carboxyhemoglob 0.7 0.0 - 1.4 % [place] in Comment: [facility] Reference Ranges: [facility] Carboxyhemoglobin [facility] Non smoker: 0.0 - 2.0% Smoker: 2.1 - 5.0% Heavy smoker: 5.1 - 9% Methemoglobin 1.5 (H) 0.0 - 1.0 % [facility] Hemoglobin, 10.3 (L) 14.0 - 18.0 g/dL [place] blood gas [facility] Specimen Blood Performing Organization Address City/[facility] [address]/[facility] Phone Number [facility] DEPARTMENT OF [address] [place] [phone] PATHOLOGY AND GENOMIC MEDICINE [facility] [address] * Total iron binding capacity (11/17/2018 4:26 AM SU[employer]ANTING EQUIPMENT OPERATOR) Iron level 12 (L) 59 - 158 ug/dL [facility] Iron binding 192 (L) 271 - 474 ug/dL [place] capacity [facility] % Saturation 6.3 (L) 20.0 - 40.0 % [facility] Specimen Blood Performing Organization Address City/State/Zipcode Phone Number [facility] DEPARTMENT OF [address] [place] [phone] PATHOLOGY AND GENOMIC MEDICINE [facility] [address] * Vitamin D 25 hydroxy level (11/17/2018 4:26 AM SU[employer] PLANTING EQUIPMENT OPERATOR) Vitamin D, 22.2 (L) 30.0 - 150.0 ng/mL [place] 25-hydroxy Comment: PRESYBETERIAN This assay reports the sum of HOSPITAL [...] alternative methods. Specimen Blood Performing Organization Address City/[facility] [address]/Zipcode Phone Number [facility] DEPARTMENT [address] [place] [address] PATHOLOGY AND [facility] MEDICINE [address] * Uric acid level (11/17/2018 4:26 AM SUG[employer]E PLANTING EQUIPMENT OPERATOR) Uric acid 9.4 (H) 3.4 - 7.0 mg/dL [facility] Specimen Plasma specimen Performing Organization Address City/State/Zipcode Phone Number [facility] DEPARTMENT OF [address] [place] [phone] PATHOLOGY AND GENOMIC MEDICINE [facility] [address] * Parathyroid hormone (11/17/2018 4:26 AM SUG[employer]E PLANTING EQUIPMENT OPERATOR) PTH 169 (H) 15 - 65 pg/mL [facility] Specimen Blood Performing Organization Address City/State/Zipcode Phone Number [facility] DEPARTMENT OF [address] [place] [address] PATHOLOGY AND GENOMIC MEDICINE [place] [phone] [place] [address] [facility] * B natriuretic peptide (11/17/2018 4:26 AM SUG[employer]E PLANTING EQUIPMENT OPERATOR) Only the most recent of 4 results within the time period is included. Pathologist [facility] BNP 317 (H) 0 - 100 pg/mL [facility] Specimen Blood Performing Organization Address City/[facility] [address]/[facility] Centercode Phone Number [place] [address] [place] [address] PATHOLOGY AND [facility] MEDICINE [address] * Ferritin level (11/17/2018 4:26 AM SUGAR [employer]E PLANTING EQUIPMENT OPERATOR) [facility] Ferritin level 499 (H) 30 - 400 ng/mL [facility] Specimen Serum Performing Organization Address City/[facility] [address]/[facility] [place] [address] PATHOLOGY AND [facility] [address] * Comprehensive metabolic panel (11/17/2018 4:26 AM SUG[employer]E PLANTING EQUIPMENT OPERATOR) Only the most recent of 2 results within the time period is included. [facility] Sodium 132 (L) 135 - 150 mEq/L [facility] Potassium 4.4 3.5 - 5.0 mEq/L [facility] Chloride 96 (L) 98 - 112 mEq/L [facility] CO2 20 (L) 24 - 31 mmol/L [facility] Anion gap 16@ANIO (H) 7 - 15 mEq/L [facility] BUN 55 (H) 7 - 18 mg/dL [facility] Creatinine 2.30 (H) 0.70 - 1.20 mg/dL [facility] Glucose 131 (H) 65 - 100 mg/dL [facility] Calcium 8.3 (L) 8.8 - 10.2 mg/dL [facility] Protein 6.4 6.3 - 8.3 g/dL [facility] Albumin 2.8 (L) 3.5 - 5.0 g/dL [facility] A/G ratio 0.8 0.7 - 3.8 [facility] Alkaline 50 0 - 129 U/L [place] phosphatase [facility] AST 36 10 - 50 U/L [facility] ALT 26 5 - 50 U/L [facility] Total bilirubin 0.4 0.2 - 1.2 mg/dL [facility] Specimen Plasma specimen Performing Organization Address City/[facility] [address]/[facility] Centercode Phone Number [facility] DEPARTMENT OF [facility] [place] [address] PATHOLOGY AND GENOMIC MEDICINE [address] * Streptococcus pneumoniae urinary antigen (11/16/2018 6:48 PM SUG[employer]E PLANTING EQUIPMENT OPERATOR) Pathologist [facility] Strep pneumo Positive for Strep pneumoniae [place] urinary Ag antigen. (A) PRESYBETERIAN Comment: HOSPITAL Specimen Information Specimen Source: Urine Specimen Site: [place] Specimen Urine - [place] Performing Organization Address [facility] [address]/[facility] Centerconv Phone Number [facility] DEPARTMENT OF [address] [place] [address] PATHOLOGY AND GENOMIC MEDICINE [address] * Sputum culture (11/16/2018 4:44 PM SUGAR CANE PLANTING EQUIPMENT OPERATOR) [facility] Sputum culture Normal oral danyelle isolated. [place] isolate Comment: PRESYBETERIAN Specimen Information HOSPITAL Specimen Source: Sputum Specimen Site: Expectorated Specimen Sputum - Expectorated Performing Organization Address [facility] [address]/[facility] Phone Number [facility] DEPARTMENT OF [address] [place] [address] PATHOLOGY AND GENOMIC MEDICINE [address] * Echocardiogram complete w contrast and 3D if needed (11/16/2018 4:43 PM SU[employer]ANTING EQUIPMENT OPERATOR) Ao Root 3.57 cm SYNGO Diameter AoV [...] i VTI 1.38 cm2/m2 HM SYNGO BSA Cecil BMI 29.03 kg/m2 HM SYNGO E wave [...] left ventricular diastolic filling. Performing Organization Address City/[facility] [address]/[facility] Centercode Phone Number [facility] [address] [place] [address] * Lactic acid level (11/16/2018 2:43 PM SUG[employer] PLANTING EQUIPMENT OPERATOR) Only the most recent of 3 results within the time period is included. Pathologist [facility] Lactic acid 1.2 0.5 - 2.2 mmol/L [facility] Specimen Blood Performing Organization Address City/[facility] [address]/[facility] Centercode Phone Number [address] [place] [address] PATHOLOGY AND GENOMIC MEDICINE [address] * Vancomycin level, random (11/16/2018 2:43 PM SUG[employer]E PLANTING EQUIPMENT OPERATOR) Pathologist [facility] Vancomycin, 10.5 ug/mL [place] random Comment: PRESYBETERIAN [facility] Therapeutic Ranges: [facility] Peak30.0 HOSPITAL - 40.0 ug/mL Vtuzvs64.0 - 20.0 ug/mL Specimen Blood Performing Organization Address City/[facility] [address]/[facility] Centercode Phone Number [facility] DEPARTMENT OF [address] [facility] [address]. [place] [phone] PATHOLOGY AND GENOMIC MEDICINE [place] [address] [facility] [address] * Mycoplasma pneumoniae Ab, IgM (11/16/2018 1:43 PM SUG[employer] PLANTING EQUIPMENT OPERATOR) Pathologist [facility] Mycoplasma 0.01 <=0.76 U/L [facility] [...] more than 12 months post-infection. Performed by [facility], [address] [place] [id number] [email or web address] Fernie Mcadams MD - Lab. Director Specimen Serum Performing Organization Address [facility] [address]/Zipcode Phone Number [facility] [address] [place] [phone] [facility] REF LAB [address] [place] [address] * Potassium level (11/16/2018 12:17 PM SUGAR CANE PLANTING EQUIPMENT OPERATOR) [facility] Potassium 5.1 (H) 3.5 - 5.0 mEq/L [facility] Specimen Plasma specimen Performing Organization Address City/State/Zipcode Phone Number [facility] DEPARTMENT OF [address] [facility] [place] [phone] PATHOLOGY AND GENOMIC MEDICINE [place] [address] [facility] [address] * Lactic acid level, SEPSIS - Now and repeat 2x every 3 hours (11/15/2018 7:11 PM SU[employer]E PLANTING EQUIPMENT OPERATOR) Only the most recent of 3 results within the time period is included. [facility] Lactic acid 3.3 (H) 0.5 - 2.2 mmol/L [facility] Specimen Blood Performing Organization Address City/State/[place] [address] PATHOLOGY AND [facility] [address] * Troponin (11/15/2018 7:11 PM SUG[employer]E PLANTING EQUIPMENT OPERATOR) Only the most recent of 3 results within the time period is included. [facility] Troponin <0.30 0.00 - 0.30 ng/mL [place] Comment: [facility] 0.11 - 1.49 [facility] indicate increased risk of acute coronary syndrome. >=1.5 ng/ml Consistent with acute myocardial infarction. The diagnostic value of a single normal or non-diagnostic result is questionable.Serial samples at 2-6 hour intervals are required to rule out acute myocardial injury. Specimen Plasma specimen Performing Organization Address [facility] [address]/[facility] [place]erc[place] [address] PATHOLOGY [address] * ECG 12 lead (11/15/2018 10:48 AM SUG[employer]E PLANTING EQUIPMENT OPERATOR) Pathologist [facility] Ventricular 88 [facility] MUSE rate Atrial rate 88 [facility] TN interval 168 [facility] QRSD interval 84 [facility] QT interval 398 [facility] QTC interval 481 [facility] P axis 1 47 [facility] QRS axis 1 49 [facility] T wave axis 95 [facility] EKG impression Normal sinus rhythm-ST & T [facility] MUSE wave abnormality, consider lateral ischemia-Prolonged QT-Abnormal ECG-No previous ECGs available- Specimen Narrative Performed At Performing Organization Address City/[facility] [address]/Zipcode Phone Number [facility] [address] [place] [address] * Blood culture, aerobic & anaerobic (11/15/2018 10:44 AM SUGAR CANE PLANTING EQUIPMENT OPERATOR) Only the most recent of 2 results within the time period is included. [facility] Blood culture No growth after 5 days of [place] isolate incubation. PRESYBETERIAN Comment: HOSPITAL Specimen Information Specimen Source: Blood Specimen Site: L HAND Specimen Blood Performing Organization Address [facility] [address]/[facility] Centercode Phone Number [facility] DEPARTMENT OF [address] [place] [address] PATHOLOGY AND [facility] [address] * Lipase level (11/15/2018 10:44 AM SUGAR CANE PLANTING EQUIPMENT OPERATOR) Lipase 15 13 - 60 U/L [facility] Specimen Plasma specimen Performing Organization Address [facility] [address]/[facility] Phone Number [facility] DEPARTMENT OF [address] [place] [address] PATHOLOGY AND [facility] [address] * Hepatic function panel (11/15/2018 10:44 AM SUGAR CANE PLANTING EQUIPMENT OPERATOR) Albumin 3.4 (L) 3.5 - 5.0 g/dL [facility] Total bilirubin 0.4 0.2 - 1.2 mg/dL [facility] Bilirubin <0.2 0.0 - 0.4 mg/dL [place] direct [facility] Alkaline 50 0 - 129 U/L [place] phosphatase [facility] Protein 7.1 6.3 - 8.3 g/dL [facility] ALT 29 5 - 50 U/L [facility] AST 26 10 - 50 U/L [facility] Specimen Plasma specimen Performing Organization Address [facility] [address]/[facility] Phone Number [facility] DEPARTMENT OF [address] [place] [address] PATHOLOGY AND [facility] [address] * ECG ED Preliminary Interpretation - Not an Order (11/15/2018 10:29 AM [employer] PLANTING EQUIPMENT OPERATOR) Narrative Performed At William Shepard MD 11/15/20188:17 PM ECG ED Preliminary Interpretation - Not an Order Performed by: William Shepard MD Authorized by: William Shepard MD ECG reviewed by ED Physician in the absence of a strategic account executive: yes Interpretation: Interpretation: abnormal Rate: ECG rate:88 ECG rate assessment: normal Rhythm: Rhythm: sinus rhythm Ectopy: Ectopy: none QRS: QRS axis:Normal QRS intervals:Normal Conduction: Conduction: normal ST segments: ST segments:Normal T waves: T waves: inverted Inverted:I and aVL Q waves: Q waves:V4, V5 and V6 * CRITICAL CARE (11/15/2018 10:29 AM SUGAR [employer]E PLANTING EQUIPMENT OPERATOR) Narrative Performed At William Shepard MD 11/15/20188:17 [...] * Respiratory pathogen panel (11/15/2018 9:59 AM SU[employer]E PLANTING EQUIPMENT OPERATOR) [facility] Respiratory Negative for all pathogens [place] pathogen panel tested: PRESYBETERIAN Negative for Adenovirus HOSPITAL Negative for Coronavirus [...] Nasopharyngeal Performing Organization Address City/State/Zipcode Phone Number [facility] [place] [address] PATHOLOGY AND GENOMIC MEDICINE [facility] [address] [place], [place] [phone] HOSPITAL * Influenza antigen (11/15/2018 9:59 AM SUG[employer]E PLANTING EQUIPMENT OPERATOR) Influenza Negative for Influenza A/B [place] antigen antigen. ERUM ROMAN Comment: NORBERTO Specimen Information HOSPITAL Specimen Source: Nares Specimen Site: Left Specimen Nares - Left Performing Organization Address City/State/Zipcode Phone Number [facility] DEPARTMENT OF [address] [place] [address] PATHOLOGY AND GENOMIC MEDICINE JOSE ALBERTO FRE[address]AN[address] [place], [place] [phone] [place] [address] after 04/05/2018 Insurance Type Payer Benefit Subscriber ID Effective Phone Address Plan / Dates Group HMO AETNA MEDICARE AETNA xxxxxxxx 2012- MEDICARE Present HMO/PPO [facility] Advance Directives Patient has advance care planning documents on file. For more information, jerson e contact: Jose Alberto Cheema [address] [place] [id number]
[2019-04-06 15:45] VITALS: BP 132/77
[2019-04-06 16:00] VITALS: BP 136/66
[2019-04-06 16:30] VITALS: BP_SYST 135; BP_SYST 138; BP_DIAS 70; BP_DIAS 74
--- NOTE | 2019-04-06 16:30 | NUR ---
1630pm Prepped ready for discharge.Dressed Iv removed site w/o s/s infiltration. Coban dressing in place.Rt Perclose site w/o hematoma. No ooze DC papers and POC given to family as well as prescription for Plavix Aware of importance of f/o care.Escorted to car with [facility] employee per w/c. Denies c/o Cp or SOB. No gross issues pain, pallor, pressure or dysrhythmia. ds/rn
--- NOTE | 2019-04-06 21:21 | Operative Report ---
DATE OF PROCEDURE: 04/06/2019 SURGEON: Fernando Godinez MD REPORT TITLE: [facility] [employer] Procedure Note INDICATIONS: Peripheral arterial disease, claudication in the left lower extremity. PROCEDURES PERFORMED: 1. Abdominal aortogram. 2. Bilateral lower extremity angiograms. 3. Selective catheter placement from the right femoral artery, left superficial femoral artery. 4. Additional third-order catheter placement in the right femoral artery, left anterior-posterior tibial artery. 5. Atherectomy and angioplasty of the left posterior tibial artery. 6. Atherectomy and angioplasty of the left superficial femoral artery. 7. Deployment of right groin Perclose. COMPLICATIONS: None. RECOMMENDATIONS: Dual antiplatelet therapy for at least three months, staged intervention on the left common iliac artery versus the left common femoral artery access. DESCRIPTION OF PROCEDURE: Access obtained in the right femoral artery. A 6-Kiswahili sheath was placed. Abdominal aortogram demonstrated mild disease in the right iliac artery, left common iliac artery, proximal 70% to 80% stenosis with 40 mm gradient. Left femoral artery could not be well visualized. Right femoral artery, 50% distal stenosis. Right infrapopliteal vessels were not well seen. The catheter then advanced into the right femoral artery, left superficial femoral artery, proximal and mid. A 90% stenosis in left femoral artery. Distal vessels were not well seen. The catheter was advanced into the right femoral artery. The left posterior tibial artery had 90% stenosis. The proximal right posterior tibial artery and peroneal artery were diffusely diseased and the left anterior tibial artery was completely occluded, two-vessel runoff to the left foot. A decision was made to intervene on the left femoral as well as posterior tibial arteries. The patient received 10,000 units of intravenous heparin for anticoagulation. The sheath was exchanged to a 6-Kiswahili 45 cm sheath, was advanced into the right femoral artery and the left superficial femoral artery. Orbital atherectomy of the left posterior tibial and femoral arteries using a diamondback CSI crown was performed. Large amounts of visible thrombus, for which manual aspiration of the left femoral artery was required. Balloon angioplasty of the posterior tibial artery with a 4 mm drug balloon and balloon angioplasty of the left femoral artery with a 7 mm drug balloon was performed. Excellent end result. Less than 10% residual stenosis, two- vessel runoff to the left foot. Right groin sheath was repaired using Perclose. The patient was discharged home on the same day with instructions as listed above. MD SARBJIT Vital/MANDY /[id number]
== END 2019-04-06 16:30 | disposition home or self-care (01) ==
LOC: CATH LAB 10:31 → CATH LAB V 15:15 → UNDOADMOB 15:15 → CATH LAB 16:30 → UNDODISOB 16:30
PROVIDERS: ATTEND Internal Medicine Interventional Cardiology
DX: I70.212 Atherosclerosis of native arteries of extremities with intermittent claudication, left leg (principal); I25.10 Atherosclerotic heart disease of native coronary artery without angina pectoris; I87.2 Venous insufficiency (chronic) (peripheral); I25.2 Old myocardial infarction; I10 Essential (primary) hypertension; E78.5 Hyperlipidemia, unspecified; E13.69 Other specified diabetes mellitus with other specified complication; Z01.812 Encounter for preprocedural laboratory examination; Z79.84 Long term (current) use of oral hypoglycemic drugs; Z79.82 Long term (current) use of aspirin; Z79.4 Long term (current) use of insulin; Z82.49 Family history of ischemic heart disease and other diseases of the circulatory system
CPT/HCPCS: 36415 ×2; 37225; 37229; 75625; 80053; 84132; 85025; 85610; C1724; C1725 ×2; C1769 ×2; C1887 ×2; C2623; J2001; J2250; J7030; Q9967; 36217; 37186; 75716; J3010